=== PATIENT | female | born 1965 | race Caucasian/White ===

== ENCOUNTER 2021-03-15 17:21 | Emergency (ER) | payer OTHER ==
[2021-03-15] MEDS ORDERED: Ketorolac 30 MG/ML SDV IVPUSH ONE (17:28)
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
[2021-03-15] MEDS ORDERED: Diazepam 2 MG Tab PO ONE (17:29)
[2021-03-15 17:53] VITALS: BP 118/59; PULSE 64
== END 2021-03-15 17:53 | disposition home or self-care (01) ==
LOC: MW.ED 17:21
DX: M54.2 Cervicalgia (principal); M54.6 Pain in thoracic spine; M25.552 Pain in left hip; Z88.0 Allergy status to penicillin; Z88.6 Allergy status to analgesic agent; Z79.899 Other long term (current) drug therapy; V49.9XXA Car occupant (driver) (passenger) injured in unspecified traffic accident, initial encounter
CPT/HCPCS: 96374; 99284; A9270; J1885

== ENCOUNTER 2021-08-01 19:13 | Observation (INO) | payer OTHER ==
[2021-08-01] MEDS ORDERED: Sodium Chloride 0.9% 20 ML SDV IV PRN (19:23)
[2021-08-01] MEDS: Sodium Chloride 0.9% 2.5 ML Syringe FLUSH PRN ×2 (19:35→20:11)
[2021-08-01] MEDS: Sodium Chloride 0.9% 10 ML Syringe FLUSH PRN ×2 (19:35→20:11)
[2021-08-01] MEDS ORDERED: Iopamidol 755 MG/ML 500 ML Multipack Bottle IVPUSH ONE (19:36)
--- NOTE | 2021-08-01 19:40 | EDM.PDOC ---
ED HPI GENERAL MEDICAL PROBLEM - General Chief Complaint: Neuro Symptoms/Deficits Stated Complaint: SHORT OF BREATH, LT ARM WEAKNESS Time Seen by Provider: 08/01/21 19:23 - History of Present Illness INITIAL COMMENTS - FREE TEXT/NARRATIVE: CHIEF COMPLAINT(S): Left arm weakness HISTORY OF PRESENT ILLNESS: This is a 56-year-old woman with a past medical history of hypothyroidism, fibromyalgia and eosinophilic esophagitis who pr esents to the emergency department as a medical resuscitation via walk-in triage with a chief complaint of left arm weakness. The patient was triaged as a stroke code. Patient states that since 10 AM approximately 9 h ago she has been experiencing intermittent left arm weakness to where she is unable to use her arm as it normally works. 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 She denies any prior history of CVA or TIA. She denies any history of heart issues. She denies any diabetes or hypertension. She states that it resolves on its own and is currently not experiencing any weakness. She states that she did have Covid in June 2020 and her symptoms feel similar. In addition to the left arm weakness she is experiencing chest pressure/heaviness which is located in the center of her chest without any radiation. She denies any overt pain. She states that she does have associated shortness of breath but denies any lower extremity edema, recent travel, recent surgery or prior history of DVT or PE. She denies any family history of aortic aneurysm, connective tissue disorders. She denies any personal history of aortic aneurysm, hypertension or history of aortic dissection. She denies any tearing pain but states that the middle of her back does ache. She denies any cough, runny nose, tension, fever or chills. REVIEW OF SYSTEMS: Constitutional: Denies fever, chills. Eyes: Denies eye pain Ears, Nose, Mouth, & Throat: Denies earache Cardiovascular: Positive for chest pressure Respiratory: Denies shortness of breath Gastrointestinal: Denies Nausea, vomiting, diarrhea, hematochezia. Genitourinary: Denies hematuria Skin:Denies a rash MSK: Positive for middle back aching Neurological: Positive for left arm weakness. Denies blurred vision, numbness, tingling. She denies any trouble walking speaking or swallowing Psychiatric: Positive for fibromyalgia PAST MEDICAL HISTORY: As per history of present illness and as reviewed below otherwise noncontributory. SURGICAL HISTORY: As per history of present illness and as reviewed below otherwise noncontributory. SOCIAL HISTORY: As per history of present illness and as reviewed below otherwise noncontributory. FAMILY HISTORY: As per history of present illness and as reviewed below otherwise noncontributory. EXAMINATION OF ORGAN SYSTEMS/BODY AREAS: VITALS: Blood pressure is 146/88 in left arm, similar blood pressure in right arm. Heart rate 65, respiratory rate 17 with an oxygen saturation 99% on room air. Temperature 37.4. GENERAL: The patient is well-nourished, well-developed, in no acute distress. HEAD: Normocephalic, atraumatic. EYES: EOMs intact. PERRL. ENT. External ears WNL. Nares patent. Oropharynx is clear with no erythema or exudate. No uvular or tongue swelling. NECK: Supple, no masses. Trachea is midline. LUNGS: No tachypnea or intercostal retractions. Clear to auscultation bilaterally, no wheezing, no rales, no stridor, no rhonchi. CARDIOVASCULAR: Regular rate and rhythm with S1-S2. No murmur, rubs or gallops. No edema. No JVD. ABDOMEN: Soft, non-distended, non-tender. Bowel sounds present in all 4 quadrants. No rebound tenderness, guarding, or peritoneal signs. MUSCULOSKELETAL: No deformity. Patient is moving all 4 limbs spontaneously. NEUROLOGICAL: AOx4. CN grossly intact. Strength 5/5 in bilateral upper and lower extremity. Sensation is intact bilaterally in upper and lower extremity. Gait appears normal. Finger to nose, heel to mcginnis, rapid alternating movements intact. NIH stroke scale of zero SKIN: No rashes, or pallor. No signs of injury. MEDICAL DECISION MAKING AND COURSE IN THE ED WITH INTERPRETATION/REVIEW OF DIAGNOSTIC STUDIES: This is a 56-year-old woman with a past medical history of prior COVID-19 infection, hypothyroidism, fibromyalgia and eosinophilic esophagitis who presents to the emergency department as a medical resuscitation via walk-in triage for a chief complaint of left arm weakness and chest pressure. Immediately upon entering the resuscitation room the patient was disrobed, placed on continuous cardiac monitoring, and IV access was established by nursing. Patient is able to speak thus displaying a patent airway, breath sounds are equal bilaterally, and patient has palpable pulses in all 4 extremities. NIH stroke scale was completed and patient has an NIH stroke scale of zero. The patient is outside the TPA window. However given her history of COVID-19 the patient is at risk for clots therefore TIA is a consideration. Will obtain a CT head and CTA of the head and neck for further evaluation. Point-of- care glucose was found to be normal. Cardiac monitoring at this time did reveal sinus rhythm and pulse oximetry with good waveform was 99% on room air. In addition given the chest pain we will undergo an ACS work-up. Given that this is similar symptoms to her prior Covid we'll obtain a Covid swab. The patient was amenable to this plan DDx: ACS, TIA, CVA Laboratory: CBC is unremarkable. INR and PTT are normal. CMP is unremarkable. Troponin is negative. Covid and influenza are negative. The radiological images were viewed by myself along with reading the report from the radiologist. CT head without contrast does not reveal any acute intracranial abnormality. CTA of the head and neck did not reveal any large vessel occlusion, aneurysm or stenosis. After imaging I did contact [facility] and spoke with Dr. Perez regarding the patient's symptomatology and imaging. At this time the patient does not require transfer but he does recommend MRI for further work-up for other causes such as multiple sclerosis. I did place the MRI order. The patient will require observation admission for this imaging. I did discuss the results with the patient. At the time of my reevaluation patient continued to have normal vital signs and was amenable to observation admission at this time. I did provide the patient with aspirin by mouth. DISPOSITION: Admission CONDITION: Fair PROCEDURES: Cardiac monitoring interpretation, pulse oximetry interpretation FINAL IMPRESSION(S)/DIAGNOSES: 1. Acute left arm weakness possible TIA 2. Acute chest pressure Critical Care Procedure Note Authorized and performed by: Timmy Chiu M.D. Critical Care Time: 36 minutes Due to a high probability of clinically significant, life threatening deterioration, the patient required my highest level of preparedness to intervene emergently and I personally spent this critical care time directly and personally managing the patient. This critical care time included obtaining a history, examining the patient, pulse oximetry; ordering and review of studies; arranging urgent treatment with development of a management plan; evaluation of a patients reponse to treatment; frequent assessment; and discussions with other providers. This critical care time was performed to assess and manage the high probability of imminent, life threatening deterioration that could result in multiorgan failure. It was exclusive of separate billable procedures and treating other patients. Please see MDM section and rest of the note for further information on patient assessment and treatment. Please see MDM section and rest of the note for further information on patient assessment and treatment. - Related Data Allergies Allergy/AdvReac Type Severity Reaction Status Date / Time Penicillins Allergy Severe Other Verified 08/01/21 19:32 NSAIDS Allergy Rash Uncoded 08/01/21 19:32 Home Meds: Home Meds Linaclotide [Linzess] 290 mcg PO 10/17/14 [History] Liothyronine [Cytomel] 5 mcg PO BID 10/17/14 [History] Meclizine [Antivert] 1 tab PO Q4HR 10/17/14 [History] Pantoprazole [Protonix] PO BID 10/17/14 [History] Phentermine 37.5 mg PO DAILY 10/17/14 [History] Pregabalin [Lyrica] 100 mg PO TID 10/17/14 [History] SUMAtriptan succinate [Imitrex] 100 mg PO 10/17/14 [History] Sertraline [Zoloft] 1 tab PO DAILY 10/17/14 [History] traZODone HCl [Oleptro ER] 100 mg PO BEDTIME 10/17/14 [History] Ibuprofen 400 mg PO Q6H PRN #20 tablet 03/15/21 [Rx] diazePAM [Valium] 2 mg PO TID PRN #10 tab 03/15/21 [Rx] Past Medical History - Past Health History Medical/Surgical History: Denies Medical/Surgical History Endocrine/Metabolic History: Reports: Hyperthyroidism - Infectious Disease History Infectious Disease History: Reports: None Social & Family History - Family History Family Medical History: No Pertinent Family History - Tobacco Use Tobacco Use Status *Q: Never Tobacco User - Caffeine Use Caffeine Use: Reports: Coffee - Recreational Drug Use Recreational Drug Use: No ED ROS GENERAL - Review of Systems Review Of Systems: See Below ED EXAM, GENERAL - Physical Exam Exam: See Below Course - Vital Signs Last Recorded V/S: Last Vital Signs Temp 37.4 C 08/01/21 19:33 Pulse 55 L 08/01/21 20:51 Resp 16 08/01/21 20:51 BP 115/76 08/01/21 20:51 Pulse Ox 98 08/01/21 20:51 - Orders/Labs/Meds Orders: Active Orders 24 hr Category Date Time Status Admission Status [Patient Status] [ADT] Stat ADT 08/01/21 21:10 Active Assess Neurological Status [RC] CONTINUOUS Care 08/01/21 19:23 Active Blood Glucose Check, Bedside [RC] STAT Care 08/01/21 19:23 Active Cardiac Monitoring [RC] CONTINUOUS Care 08/01/21 19:23 Active Communication Order [RC] STAT Care 08/01/21 19:23 Active Height and Weight [RC] UPON Care 08/01/21 19:23 Active NIH Stroke Scale [RC] Q15M Care 08/01/21 19:23 Active NIH Stroke Scale [RC] STAT Care 08/01/21 19:23 Active Oxygen Therapy, ED [RC] ASDIRECTED Care 08/01/21 19:23 Active Vital Signs [RC] Q15M Care 08/01/21 19:23 Active Brain w wo Cont [MR] Stat Exams 08/01/21 20:23 Ordered Chest 1V Frontal [CR] Stat Exams 08/01/21 20:31 Taken Sodium Chloride 0.9% [Normal Saline] Med 08/01/21 19:23 Active 10 ml IV ASDIRECTED PRN Sodium Chloride 0.9% [Saline Flush] Med 08/01/21 19:23 Active 10 ml FLUSH ASDIRECTED PRN Sodium Chloride 0.9% [Saline Flush] Med 08/01/21 19:23 Active 2.5 ml FLUSH ASDIRECTED PRN Peripheral IV Insertion Adult [OM.PC] Stat Oth 08/01/21 19:23 Ordered Peripheral IV Insertion Adult [OM.PC] Stat Oth 08/01/21 19:23 Ordered Resuscitation Status Stat Resus Stat 08/01/21 19:23 Ordered Medication Orders Sodium Chloride (Sodium Chloride 0.9% 10 Ml Syringe) 10 ml FLUSH ASDIRECTED PRN PRN Reason: Keep Vein Open Last Admin: 08/01/21 20:11 Dose: 10 ml Documented by: Admin: 08/01/21 19:35 Dose: 10 ml Documented by: ANKITA Sodium Chloride (Sodium Chloride 0.9% 2.5 Ml Syringe) 2.5 ml FLUSH ASDIRECTED PRN PRN Reason: Keep Vein Open Last Admin: 08/01/21 20:11 Dose: 2.5 ml Documented by: Admin: 08/01/21 19:35 Dose: 2.5 ml Documented by: ANKITA Sodium Chloride (Sodium Chloride 0.9% 20 Ml Sdv) 10 ml IV ASDIRECTED PRN PRN Reason: IV Use Labs: Laboratory Tests 08/01/21 08/01/21 08/01/21 Range/Units 19:23 19:23 19:23 WBC 6.62 (4.0-11.0) K/uL RBC 4.10 L (4.30-5.90) M/uL Hgb 12.5 (12.0-16.0) g/dL Hct 37.5 (36.0-46.0) % MCV 91.5 (80.0-98.0) fL MCH 30.5 (27.0-32.0) pg MCHC 33.3 (31.0-37.0) g/dL RDW Std Deviation 45.8 (28.0-62.0) fl RDW Coeff of Renay 14 (11.0-15.0) % Plt Count 287 (150-400) K/uL MPV 10.10 (7.40-12.00) fL Neut % (Auto) 53.7 (48.0-80.0) % Lymph % (Auto) 37.8 (16.0-40.0) % [place] % (Auto) 5.0 (0.0-15.0) % Eos % (Auto) 3.0 (0.0-7.0) % Baso % (Auto) 0.5 (0.0-1.5) % Neut # (Auto) 3.6 (1.4-5.7) K/uL Lymph # (Auto) 2.5 H (0.6-2.4) K/uL [place] # (Auto) 0.3 (0.0-0.8) K/uL Eos # (Auto) 0.2 (0.0-0.7) K/uL Baso # (Auto) 0.0 (0.0-0.1) K/uL Nucleated RBC % 0.0 /100WBC Nucleated RBCs # 0 K/uL INR 1.00 APTT 23.9 (18.6-31.3) SEC Sodium 143 (136-145) mmol/L Potassium 3.6 (3.5-5.1) mmol/L Chloride 104 (98-107) mmol/L Carbon Dioxide 28.9 (21.0-32.0) mmol/L BUN 18 (7.0-18.0) mg/dL Creatinine 0.8 (0.6-1.0) mg/dL Est Cr Clr Drug Dosing 58.55 mL/min Estimated GFR (MDRD) > 60.0 ml/min Glucose 96 (74-106) mg/dL Calcium 8.8 (8.5-10.1) mg/dL Total Bilirubin 0.3 (0.2-1.0) mg/dL AST 18 (15-37) IU/L ALT 28 (14-63) IU/L Alkaline Phosphatase 93 (46-116) U/L Troponin I < 0.050 (0.000-0.056) ng/mL Total Protein 6.8 (6.4-8.2) g/dL Albumin 3.7 (3.4-5.0) g/dL Globulin 3.1 (2.6-4.0) g/dL Albumin/Globulin Ratio 1.2 (0.9-1.6) TSH, Ultra Sensitive (0.36-3.74) uIU/mL Influenza Type A RNA (NEGATIVE) Influenza Type B RNA (NEGATIVE) SARS-CoV-2 RNA (RIOS) (NEGATIVE) 08/01/21 08/01/21 Range/Units 19:23 19:24 WBC (4.0-11.0) K/uL RBC (4.30-5.90) M/uL Hgb (12.0-16.0) g/dL Hct (36.0-46.0) % MCV (80.0-98.0) fL MCH (27.0-32.0) pg MCHC (31.0-37.0) g/dL RDW Std Deviation (28.0-62.0) fl RDW Coeff of Renay (11.0-15.0) % Plt Count (150-400) K/uL MPV (7.40-12.00) fL Neut % (Auto) (48.0-80.0) % Lymph % (Auto) (16.0-40.0) % [place] % (Auto) (0.0-15.0) % Eos % (Auto) (0.0-7.0) % Baso % (Auto) (0.0-1.5) % Neut # (Auto) (1.4-5.7) K/uL Lymph # (Auto) (0.6-2.4) K/uL [place] # (Auto) (0.0-0.8) K/uL Eos # (Auto) (0.0-0.7) K/uL Baso # (Auto) (0.0-0.1) K/uL Nucleated RBC % /100WBC Nucleated RBCs # K/uL INR APTT (18.6-31.3) SEC Sodium (136-145) mmol/L Potassium (3.5-5.1) mmol/L Chloride (98-107) mmol/L Carbon Dioxide (21.0-32.0) mmol/L BUN (7.0-18.0) mg/dL Creatinine (0.6-1.0) mg/dL Est Cr Clr Drug Dosing mL/min Estimated GFR (MDRD) ml/min Glucose (74-106) mg/dL Calcium (8.5-10.1) mg/dL Total Bilirubin (0.2-1.0) mg/dL AST (15-37) IU/L ALT (14-63) IU/L Alkaline Phosphatase (46-116) U/L Troponin I (0.000-0.056) ng/mL Total Protein (6.4-8.2) g/dL Albumin (3.4-5.0) g/dL Globulin (2.6-4.0) g/dL Albumin/Globulin Ratio (0.9-1.6) TSH, Ultra Sensitive 1.57 (0.36-3.74) uIU/mL Influenza Type A RNA NEGATIVE (NEGATIVE) Influenza Type B RNA NEGATIVE (NEGATIVE) SARS-CoV-2 RNA (RIOS) NEGATIVE (NEGATIVE) Meds: Medications Generic Name Dose Route Start Last Admin Trade Name Freq PRN Reason Stop Dose Admin Sodium Chloride 10 ml 08/01/21 19:23 08/01/21 20:11 Sodium Chloride 0.9% 10 Ml Syringe FLUSH 10 ml ASDIRECTED PRN Administration Keep Vein Open Sodium Chloride 2.5 ml 08/01/21 19:23 08/01/21 20:11 Sodium Chloride 0.9% 2.5 Ml Syringe FLUSH 2.5 ml ASDIRECTED PRN Administration Keep Vein Open Sodium Chloride 10 ml 08/01/21 19:23 Sodium Chloride 0.9% 20 Ml Sdv IV ASDIRECTED PRN IV Use Discontinued Medications Generic Name Dose Route Start Last Admin Trade Name Freq PRN Reason Stop Dose Admin Aspirin 324 mg 08/01/21 20:20 08/01/21 20:40 Aspirin 81 Mg Tab.Chew PO 08/01/21 20:21 324 mg ONETIME ONE Administration Alum [place]/Mag [place]/Simeth XS 0 ml 08/01/21 20:04 08/01/21 20:11 15 ml/ Lidocaine HCl 5 ml PO 08/01/21 20:05 15 each ONETIME ONE Administration Diphenhydramine HCl 50 mg 08/01/21 20:00 08/01/21 20:10 Diphenhydramine 50 Mg/Ml Sdv IVPUSH 08/01/21 20:01 50 mg ONETIME ONE Administration Iopamidol 100 ml 08/01/21 19:36 08/01/21 19:49 Iopamidol 755 Mg/Ml 500 Ml Multipack Bottle IVPUSH 08/01/21 19:37 100 ml ONETIME ONE Administration Departure - Departure Time of Disposition: 20:35 Disposition: Refer to Observation Condition: Fair Clinical Impression: Arm weakness, Chest pressure - Discharge Information Forms: ED Department Discharge Sepsis Event Note (ED) - Evaluation Sepsis Screening Result: No Definite Risk - Focused Exam Vital Signs: Vital Signs Temp Pulse Resp BP Pulse Ox 08/01/21 20:51 55 L 16 115/76 98 08/01/21 20:15 69 18 146/85 H 100 08/01/21 20:08 68 16 130/75 99 08/01/21 19:53 62 16 145/78 H 100 08/01/21 19:38 59 L 18 141/89 H 99 08/01/21 19:33 37.4 C 65 17 146/88 H 99 08/01/21 19:23 56 L 18 141/93 H 100 - My Orders Last 24 Hours: My Active Orders 08/01/21 19:23 Assess Neurological Status [RC] CONTINUOUS Blood Glucose Check, Bedside [RC] STAT Cardiac Monitoring [RC] CONTINUOUS Communication Order [RC] STAT Height and Weight [RC] UPON NIH Stroke Scale [RC] Q15M NIH Stroke Scale [RC] STAT Oxygen Therapy, ED [RC] ASDIRECTED Vital Signs [RC] Q15M Sodium Chloride 0.9% [Normal Saline] 10 ml IV ASDIRECTED PRN Sodium Chloride 0.9% [Saline Flush] 10 ml FLUSH ASDIRECTED PRN Sodium Chloride 0.9% [Saline Flush] 2.5 ml FLUSH ASDIRECTED PRN Peripheral IV Insertion Adult [OM.PC] Stat Peripheral IV Insertion Adult [OM.PC] Stat Resuscitation Status Stat 08/01/21 20:23 Brain w wo Cont [MR] Stat 08/01/21 20:31 Chest 1V Frontal [CR] Stat 08/01/21 21:10 Admission Status [Patient Status] [ADT] Stat - Assessment/Plan Last 24 Hours: My Active Orders 08/01/21 19:23 Assess Neurological Status [RC] CONTINUOUS Blood Glucose Check, Bedside [RC] STAT Cardiac Monitoring [RC] CONTINUOUS Communication Order [RC] STAT Height and Weight [RC] UPON NIH Stroke Scale [RC] Q15M NIH Stroke Scale [RC] STAT Oxygen Therapy, ED [RC] ASDIRECTED Vital Signs [RC] Q15M Sodium Chloride 0.9% [Normal Saline] 10 ml IV ASDIRECTED PRN Sodium Chloride 0.9% [Saline Flush] 10 ml FLUSH ASDIRECTED PRN Sodium Chloride 0.9% [Saline Flush] 2.5 ml FLUSH ASDIRECTED PRN Peripheral IV Insertion Adult [OM.PC] Stat Peripheral IV Insertion Adult [OM.PC] Stat Resuscitation Status Stat 08/01/21 20:23 Brain w wo Cont [MR] Stat 08/01/21 20:31 Chest 1V Frontal [CR] Stat 08/01/21 21:10 Admission Status [Patient Status] [ADT] Stat
--- NOTE | 2021-08-01 19:43 | PCM.EKG ---
#1 Interpretation EKG Date: 08/01/21 Time: 19:24 Rhythm: NSR Rate (Beats/Min): 60 Walls: Normal P-Wave: Present QRS: Normal ST-T: Normal QT: Normal Comparison: NA - No Prior EKG EKG Interpretation Comments: Sinus Rhythm
[2021-08-01 19:55] LABS: BLOOD UREA NITROGEN,BUN 18 mg/dL (7.0-18.0); CARBON DIOXIDE,CO2 28.9 mmol/L (21.0-32.0); CHLORIDE,CL 104 mmol/L (98-107); GLUCOSE RANDOM 96 mg/dL (74-106); POTASSIUM,K 3.6 mmol/L (3.5-5.1); SODIUM,NA 143 mmol/L (136-145)
[2021-08-01] MEDS ORDERED: diphenhydrAMINE 50 MG/ML SDV IVPUSH ONE (20:00)
[2021-08-01] MEDS ORDERED: Alum Hydro/Mag Hydro/Simeth XS 15 ML, Lidocaine 2% 5 ML PO ONE ×2 (20:04)
[2021-08-01 20:10] LABS: CORONAVIRUS COVID-19 NAA NEGATIVE (NEGATIVE); INFLUENZA A NAA NEGATIVE (NEGATIVE); INFLUENZA B NAA NEGATIVE (NEGATIVE)
--- NOTE | 2021-08-01 20:11 | PCM.EKG ---
#2 Interpretation EKG Date: 08/01/21 Time: 19:53 Rhythm: NSR Rate (Beats/Min): 61 [place]: Normal P-Wave: Present QRS: Normal ST-T: Normal QT: Normal Comparison: No Change (Today) EKG Interpretation Comments: Sinus Rhythm
--- NOTE | 2021-08-01 20:13 | CT ---
Indication: Left-sided weakness Technique: Volumetric multidetector CT images of the head were obtained without the administration of low osmolar intravenous contrast. Comparison: None available Findings: There is no intra-axial or extra-axial fluid collection. There is no mass effect or midline shift. The ventricles and sulci are normal in size and position for age. There is mild chronic small vessel disease change within the subcortical and periventricular white matter. The brain parenchyma is grossly preserved in attenuation and walker-white differentiation. The orbits and their contents are grossly within normal limits. The bony calvarium is grossly intact. The paranasal sinuses are clear. The mastoid air cells are well aerated. Impression: No acute intracranial abnormality. Findings faxed to and confirmed received by Dr. Chiu at 8:08 p.m. August 01, [address] note that all CT scans at this facility use dose modulation, iterative reconstruction, and/or weight-based dosing when appropriate to reduce radiation dose to as low as reasonably achievable. Dictated by Lucien Card MD @ 08/01/2021 8:10:47 PM (Electronically Signed)
--- NOTE | 2021-08-01 20:17 | CT ---
INDICATION: Acute stroke, left-sided weakness. TECHNIQUE: CTA head with contrast bolus tracking and 3D MIP reconstruction. FINDINGS: There is normal filling of the intracranial vasculature. There is no large vessel occlusion. No aneurysm is identified. IMPRESSION: Unremarkable head CTA. Please note that all CT scans at this facility use dose modulation, iterative reconstruction, and/or weight-based dosing when appropriate to reduce radiation dose to as low as reasonably achievable. Dictated by Luiz Goss MD @ 08/01/2021 11:48:35 PM (Electronically Signed)
[2021-08-01] MEDS ORDERED: Aspirin 81 MG Tab.Chew PO ONE (20:20)
--- NOTE | 2021-08-01 20:44 | CT ---
INDICATION: Acute stroke, left-sided weakness. TECHNIQUE: CTA neck with contrast bolus tracking and 3D MIP reconstruction. FINDINGS: There is no carotid or vertebral artery stenosis or dissection. The soft tissues of the neck are within normal limits. Degenerative changes are incidentally noted in the cervical spine. IMPRESSION: No carotid or vertebral artery stenosis or dissection. Please note that all CT scans at this facility use dose modulation, iterative reconstruction, and/or weight-based dosing when appropriate to reduce radiation dose to as low as reasonably achievable. Dictated by Luiz Goss MD @ 08/01/2021 11:49:44 PM (Electronically Signed)
[2021-08-01] MEDS ORDERED: Enoxaparin 40 MG/0.4 ML Syringe SUBCUT SCH ×2 (21:00→23:30)
[2021-08-01] MEDS ORDERED: Acetaminophen 325 MG Tab PO PRN (21:19)
[2021-08-01] MEDS ORDERED: Ondansetron 4 MG Tab.DIS PO PRN (21:19)
--- NOTE | 2021-08-01 21:46 | PCM.HP.2 ---
<Benja Quintanilla - Last Filed: 08/02/21 11:07> H&P History of Present Illness - General Admit Problem/Dx: Admission Diagnosis/Problem Admission Diagnosis/Problem TIA, Transient ischemic attack Source of Information: Patient History Limitations: Reports: No Limitations - History of Present Illness Initial Comments - Free Text/Narative: Presented to the emergency room on 08/01/2021 was this 56-year-old woman with past medical history fibromyalgia, hypothyroidism, and egocentric esophagitis. She walked in with a complaint of left arm numbness. Noticed she felt a clumsiness or difference in the way that her left arm felt relative to the right. She has never had a history of trouble with the arm, prior history of CVA or TIA, cardiovascular disease, diabetes, hypertension. The symptoms started in the morning of admission and lasted about 9 hours, spontaneously going away. Patient does not have a history of lower extremity edema, deep venous thrombosis, coagulation disorder. Patient has no history of cardiovascular disease or arrhythmia. Patient was admitted for observation and completion of work-up to look for possibility of a CVA. Onset of Symptoms: Reports: Sudden Duration of Symptoms: Reports: Hour(s): Location: Reports: Upper Extremity, Left Quality: Reports: Other Severity: Moderate (See dictated text above.) Improves with: Reports: None Worsens with: Reports: None Context: Reports: Activity/Exercise Associated Symptoms: Reports: No Other Symptoms - Related Data Allergies/Adverse Reactions: Allergies Allergy/AdvReac Type Severity Reaction Status Date / Time Penicillins Allergy Severe Other Verified 08/02/21 02:24 NSAIDS AdvReac Mild Other Uncoded 08/02/21 02:24 Home Medications: Home Meds Liothyronine [Cytomel] 5 mcg PO DAILY 10/17/14 [History] Pantoprazole [ProTONIX Granules] 40 mg PO DAILY 10/17/14 [History] SUMAtriptan succinate [Imitrex] 100 mg PO DAILY 10/17/14 [History] Sertraline [Zoloft] 50 mg PO DAILY 10/17/14 [History] traZODone HCl [Oleptro ER] 100 mg PO BEDTIME 10/17/14 [History] Ibuprofen 400 mg PO Q6H PRN #20 tablet 03/15/21 [Rx] Aspirin 81 mg PO DAILY #30 tab.chew 08/02/21 [Rx] Furosemide [Lasix] 40 mg PO DAILY 08/02/21 [History] Levothyroxine [Synthroid] 100 mcg PO DAILY 08/02/21 [History] Metoclopramide [Reglan] 10 mg PO DAILY PRN 08/02/21 [History] methocarbamoL [Methocarbamol] 750 mg PO DAILY PRN 08/02/21 [History] H&P Review of Systems - Review of Systems: General: Reports: No Symptoms HEENT: Reports: No Symptoms Pulmonary: Reports: Shortness of Breath Cardiovascular: Reports: No Symptoms Gastrointestinal: Reports: No Symptoms Genitourinary: Reports: No Symptoms Musculoskeletal: Reports: No Symptoms Skin: Reports: No Symptoms Psychiatric: Reports: No Symptoms Neurological: Reports: Paresthesia, Weakness Hematologic/Lymphatic: Reports: No Symptoms Immunologic: Reports: Grass Allergy, Other (History of eosinophilic esophagitis without known etiology.) Exam - Vital Signs Vital Signs: Last Vital Signs Temp 97.5 F 08/02/21 08:00 Pulse 57 L 08/02/21 08:00 Resp 18 08/02/21 08:00 BP 104/71 08/02/21 08:00 Pulse Ox 100 08/02/21 08:00 - Patient Data Lab Results Last 24 hrs: Laboratory Results - last 24 hr 08/01/21 08/01/21 08/01/21 Range/Units 19:23 19:23 19:23 WBC 6.62 (4.0-11.0) K/uL RBC 4.10 L (4.30-5.90) M/uL Hgb 12.5 (12.0-16.0) g/dL Hct 37.5 (36.0-46.0) % MCV 91.5 (80.0-98.0) fL MCH 30.5 (27.0-32.0) pg MCHC 33.3 (31.0-37.0) g/dL RDW Std Deviation 45.8 (28.0-62.0) fl RDW Coeff of Renay 14 (11.0-15.0) % Plt Count 287 (150-400) K/uL MPV 10.10 (7.40-12.00) fL Neut % (Auto) 53.7 (48.0-80.0) % Lymph % (Auto) 37.8 (16.0-40.0) % [place] % (Auto) 5.0 (0.0-15.0) % Eos % (Auto) 3.0 (0.0-7.0) % Baso % (Auto) 0.5 (0.0-1.5) % Neut # (Auto) 3.6 (1.4-5.7) K/uL Lymph # (Auto) 2.5 H (0.6-2.4) K/uL [place] # (Auto) 0.3 (0.0-0.8) K/uL Eos # (Auto) 0.2 (0.0-0.7) K/uL Baso # (Auto) 0.0 (0.0-0.1) K/uL Nucleated RBC % 0.0 /100WBC Nucleated RBCs # 0 K/uL INR 1.00 APTT 23.9 (18.6-31.3) SEC Sodium 143 (136-145) mmol/L Potassium 3.6 (3.5-5.1) mmol/L Chloride 104 (98-107) mmol/L Carbon Dioxide 28.9 (21.0-32.0) mmol/L BUN 18 (7.0-18.0) mg/dL Creatinine 0.8 (0.6-1.0) mg/dL Est Cr Clr Drug Dosing 58.55 mL/min Estimated GFR (MDRD) > 60.0 ml/min Glucose 96 (74-106) mg/dL Calcium 8.8 (8.5-10.1) mg/dL Total Bilirubin 0.3 (0.2-1.0) mg/dL AST 18 (15-37) IU/L ALT 28 (14-63) IU/L Alkaline Phosphatase 93 (46-116) U/L Troponin I < 0.050 (0.000-0.056) ng/mL Total Protein 6.8 (6.4-8.2) g/dL Albumin 3.7 (3.4-5.0) g/dL Globulin 3.1 (2.6-4.0) g/dL Albumin/Globulin Ratio 1.2 (0.9-1.6) Triglycerides (0-200) mg/dL Cholesterol (50-200) mg/dL LDL Cholesterol, Calc (60-180) mg/dL VLDL Cholesterol (5-55) mg/dL HDL Cholesterol (40-60) mg/dL Cholesterol/HDL Ratio (3.3-6.0) TSH, Ultra Sensitive (0.36-3.74) uIU/mL Influenza Type A RNA (NEGATIVE) Influenza Type B RNA (NEGATIVE) SARS-CoV-2 RNA (RIOS) (NEGATIVE) 08/01/21 08/01/21 08/02/21 Range/Units 19:23 19:24 10:06 WBC (4.0-11.0) K/uL RBC (4.30-5.90) M/uL Hgb (12.0-16.0) g/dL Hct (36.0-46.0) % MCV (80.0-98.0) fL MCH (27.0-32.0) pg MCHC (31.0-37.0) g/dL RDW Std Deviation (28.0-62.0) fl RDW Coeff of Renay (11.0-15.0) % Plt Count (150-400) K/uL MPV (7.40-12.00) fL Neut % (Auto) (48.0-80.0) % Lymph % (Auto) (16.0-40.0) % [place] % (Auto) (0.0-15.0) % Eos % (Auto) (0.0-7.0) % Baso % (Auto) (0.0-1.5) % Neut # (Auto) (1.4-5.7) K/uL Lymph # (Auto) (0.6-2.4) K/uL [place] # (Auto) (0.0-0.8) K/uL Eos # (Auto) (0.0-0.7) K/uL Baso # (Auto) (0.0-0.1) K/uL Nucleated RBC % /100WBC Nucleated RBCs # K/uL INR APTT (18.6-31.3) SEC Sodium (136-145) mmol/L Potassium (3.5-5.1) mmol/L Chloride (98-107) mmol/L Carbon Dioxide (21.0-32.0) mmol/L BUN (7.0-18.0) mg/dL Creatinine (0.6-1.0) mg/dL Est Cr Clr Drug Dosing mL/min Estimated GFR (MDRD) ml/min Glucose (74-106) mg/dL Calcium (8.5-10.1) mg/dL Total Bilirubin (0.2-1.0) mg/dL AST (15-37) IU/L ALT (14-63) IU/L Alkaline Phosphatase (46-116) U/L Troponin I (0.000-0.056) ng/mL Total Protein (6.4-8.2) g/dL Albumin (3.4-5.0) g/dL Globulin (2.6-4.0) g/dL Albumin/Globulin Ratio (0.9-1.6) Triglycerides 128 (0-200) mg/dL Cholesterol 185 (50-200) mg/dL LDL Cholesterol, Calc 70 (60-180) mg/dL VLDL Cholesterol 25 (5-55) mg/dL HDL Cholesterol 89 H (40-60) mg/dL Cholesterol/HDL Ratio 2.1 L (3.3-6.0) TSH, Ultra Sensitive 1.57 (0.36-3.74) uIU/mL Influenza Type A RNA NEGATIVE (NEGATIVE) Influenza Type B RNA NEGATIVE (NEGATIVE) SARS-CoV-2 RNA (RIOS) NEGATIVE (NEGATIVE) Result Diagrams: 08/01/21 19:23 08/01/21 19:23 Sepsis Event Note - Focused Exam Vital Signs: Vital Signs Temp Pulse Resp BP Pulse Ox 08/02/21 08:00 97.5 F 57 L 18 104/71 100 08/02/21 04:00 96.7 F L 56 L 14 100/61 97 08/01/21 23:40 97.7 F 58 L 14 128/76 100 Orders Last 24hrs: Active Orders 24 hr Category Date Time Status Patient Status [ADT] Stat ADT 08/01/21 21:10 Active Assess Neurological Status [RC] CONTINUOUS Care 08/01/21 19:23 Active Blood Glucose Check, Bedside [RC] STAT Care 08/01/21 19:23 Active Cardiac Monitoring [RC] CONTINUOUS Care 08/01/21 19:23 Active Cardiac Monitoring [RC] Q8H Care 08/01/21 21:33 Active Communication Order [RC] STAT Care 08/01/21 19:23 Active Height and Weight [RC] UPON Care 08/01/21 19:23 Active NIH Stroke Scale [RC] ASDIRECTED Care 08/01/21 21:23 Active NIH Stroke Scale [RC] Q15M Care 08/01/21 19:23 Active NIH Stroke Scale [RC] STAT Care 08/01/21 19:23 Active Neuro Check [RC] Q4HR Care 08/01/21 21:24 Active Oxygen Therapy [RC] PRN Care 08/01/21 21:20 Active Oxygen Therapy, ED [RC] ASDIRECTED Care 08/01/21 19:23 Active Up ad Anna [RC] ASDIRECTED Care 08/01/21 21:19 Active VTE/DVT Education [RC] PER UNIT ROUTINE Care 08/01/21 21:20 Active Vital Signs [RC] Q15M Care 08/01/21 19:23 Active Vital Signs [RC] Q4H Care 08/01/21 21:20 Active OT Evaluation and Treatment [CONS] Routine Cons 08/01/21 21:19 Active PT Evaluation and Treatment [CONS] Routine Cons 08/01/21 21:19 Active PARTNERSHIP DEVELOPMENT MANAGER Evaluation and Treatment [CONS] Routine Cons 08/01/21 21:19 Active Regular Diet [DIET] Diet 08/02/21 Breakfast Active Echo Comp wo Cont [US] Stat Exams 08/02/21 21:23 Taken Acetaminophen [TylenoL] Med 08/01/21 21:19 Active 650 mg PO Q4H PRN Enoxaparin [Lovenox] Med 08/01/21 23:30 Active 40 mg SUBCUT BEDTIME Ondansetron [Zofran ODT] Med 08/01/21 21:19 Active 4 mg PO Q6H PRN Pantoprazole [ProTONIX] Med 08/01/21 23:30 Active 40 mg PO BID Patient's Own Medication [Ptom] Med 08/02/21 09:00 Active 1 each PO BID SUMAtriptan [Imitrex] Med 08/02/21 07:01 Active 100 mg PO ONETIME PRN Sertraline [Zoloft] Med 08/01/21 23:30 Active 50 mg PO BEDTIME Sodium Chloride 0.9% [Normal Saline] Med 08/01/21 19:23 Active 10 ml IV ASDIRECTED PRN Sodium Chloride 0.9% [Saline Flush] Med 08/01/21 19:23 Active 10 ml FLUSH ASDIRECTED PRN Sodium Chloride 0.9% [Saline Flush] Med 08/01/21 19:23 Active 2.5 ml FLUSH ASDIRECTED PRN traZODone Med 08/02/21 00:15 Active 100 mg PO BEDTIME Peripheral IV Insertion Adult [OM.PC] Stat Oth 08/01/21 19:23 Ordered Peripheral IV Insertion Adult [OM.PC] Stat Oth 08/01/21 19:23 Ordered Resuscitation Status Stat Resus Stat 08/01/21 19:23 Ordered Medication Orders Acetaminophen (Acetaminophen 325 Mg Tab) 650 mg PO Q4H PRN PRN Reason: Pain (Mild 1-3)/fever Enoxaparin Sodium (Enoxaparin 40 Mg/0.4 Ml Syringe) 40 mg SUBCUT BEDTIME [facility] Last Admin: 08/02/21 00:24 Dose: 40 mg Documented by: ANURAG Ondansetron HCl (Ondansetron 4 Mg Tab.Dis) 4 mg PO Q6H PRN PRN Reason: nausea, able to take PO Pantoprazole Sodium (Pantoprazole 40 Mg Tab.Cr) 40 mg PO BID [facility] Last Admin: 08/02/21 08:56 Dose: 40 mg Documented by: Admin: 08/02/21 00:25 Dose: 40 mg Documented by: ANURAG Liothyronine 5 Mcg (Tablet) 1 each PO BID [facility] Last Admin: 08/02/21 08:57 Dose: Not Given Documented by: EM Sertraline HCl (Sertraline 50 Mg Tab) 50 mg PO BEDTIME [facility] Last Admin: 08/02/21 00:25 Dose: 50 mg Documented by: ANURAG Sodium Chloride (Sodium Chloride 0.9% 10 Ml Syringe) 10 ml FLUSH ASDIRECTED PRN PRN Reason: Keep Vein Open Last Admin: 08/01/21 20:11 Dose: 10 ml Documented by: Admin: 08/01/21 19:35 Dose: 10 ml Documented by: ANKITA Sodium Chloride (Sodium Chloride 0.9% 2.5 Ml Syringe) 2.5 ml FLUSH ASDIRECTED PRN PRN Reason: Keep Vein Open Last Admin: 08/01/21 20:11 Dose: 2.5 ml Documented by: Admin: 08/01/21 19:35 Dose: 2.5 ml Documented by: CUYOCHR Sodium Chloride (Sodium Chloride 0.9% 20 Ml Sdv) 10 ml IV ASDIRECTED PRN PRN Reason: IV Use Sumatriptan Succinate (Sumatriptan 50 Mg Tab) 100 mg PO ONETIME PRN PRN Reason: MIGRAINE HEADACHE Trazodone HCl (Trazodone 50 Mg Tab) 100 mg PO BEDTIME [facility] Last Admin: 08/02/21 00:25 Dose: 100 mg Documented by: ANURAG <Tamra Kirk - Last Filed: 08/02/21 12:19> H&P History of Present Illness - General Date of Service: 08/02/21 Admit Problem/Dx: Admission Diagnosis/Problem Admission Diagnosis/Problem TIA, Transient ischemic attack H&P Review of Systems - Review of Systems: Review Of Systems: See Below Exam - Exam Exam: See Below - Vital Signs Vital Signs: Last Vital Signs Temp 96.4 F L 08/02/21 11:38 Pulse 59 L 08/02/21 11:38 Resp 22 H 08/02/21 11:38 BP 105/54 L 08/02/21 11:38 Pulse Ox 98 08/02/21 11:38 - Exam General: Alert, Oriented, 4 HEENT: Conjunctiva Clear, EACs Clear, EOMI, Hearing Intact, Mucosa Moist & [place], Nares Patent, Normal Nasal Septum, Posterior Pharynx Clear, PERRLA Neck: Supple, Trachea Midline, 2 Lungs: Clear to Auscultation, Normal Respiratory Effort Cardiovascular: Regular Rate, Regular Rhythm GI/Abdominal Exam: Soft, Non-Tender, No Distention (Female) Exam: Deferred Rectal (Female) Exam: Deferred Back Exam: Normal Inspection Extremities: Normal Inspection Peripheral Pulses: 2+: Carotid (L) (No bruit), Carotid (R) (No bruit), Radial (L), Radial (R) Skin: Warm, Dry, Intact Neurological: Cranial Nerves Intact, Strength Equal Bilateral, Normal Speech, Other (Romberg negative) - Patient Data Lab Results Last 24 hrs: Laboratory Results - last 24 hr 08/01/21 08/01/21 08/01/21 Range/Units 19:23 19:23 19:23 WBC 6.62 (4.0-11.0) K/uL RBC 4.10 L (4.30-5.90) M/uL Hgb 12.5 (12.0-16.0) g/dL Hct 37.5 (36.0-46.0) % MCV 91.5 (80.0-98.0) fL MCH 30.5 (27.0-32.0) pg MCHC 33.3 (31.0-37.0) g/dL RDW Std Deviation 45.8 (28.0-62.0) fl RDW Coeff of Renay 14 (11.0-15.0) % Plt Count 287 (150-400) K/uL MPV 10.10 (7.40-12.00) fL Neut % (Auto) 53.7 (48.0-80.0) % Lymph % (Auto) 37.8 (16.0-40.0) % [place] % (Auto) 5.0 (0.0-15.0) % Eos % (Auto) 3.0 (0.0-7.0) % Baso % (Auto) 0.5 (0.0-1.5) % Neut # (Auto) 3.6 (1.4-5.7) K/uL Lymph # (Auto) 2.5 H (0.6-2.4) K/uL [place] # (Auto) 0.3 (0.0-0.8) K/uL Eos # (Auto) 0.2 (0.0-0.7) K/uL Baso # (Auto) 0.0 (0.0-0.1) K/uL Nucleated RBC % 0.0 /100WBC Nucleated RBCs # 0 K/uL INR 1.00 APTT 23.9 (18.6-31.3) SEC Sodium 143 (136-145) mmol/L Potassium 3.6 (3.5-5.1) mmol/L Chloride 104 (98-107) mmol/L Carbon Dioxide 28.9 (21.0-32.0) mmol/L BUN 18 (7.0-18.0) mg/dL Creatinine 0.8 (0.6-1.0) mg/dL Est Cr Clr Drug Dosing 58.55 mL/min Estimated GFR (MDRD) > 60.0 ml/min Glucose 96 (74-106) mg/dL Calcium 8.8 (8.5-10.1) mg/dL Total Bilirubin 0.3 (0.2-1.0) mg/dL AST 18 (15-37) IU/L ALT 28 (14-63) IU/L Alkaline Phosphatase 93 (46-116) U/L Troponin I < 0.050 (0.000-0.056) ng/mL Total Protein 6.8 (6.4-8.2) g/dL Albumin 3.7 (3.4-5.0) g/dL Globulin 3.1 (2.6-4.0) g/dL Albumin/Globulin Ratio 1.2 (0.9-1.6) Triglycerides (0-200) mg/dL Cholesterol (50-200) mg/dL LDL Cholesterol, Calc (60-180) mg/dL VLDL Cholesterol (5-55) mg/dL HDL Cholesterol (40-60) mg/dL Cholesterol/HDL Ratio (3.3-6.0) TSH, Ultra Sensitive (0.36-3.74) uIU/mL Influenza Type A RNA (NEGATIVE) Influenza Type B RNA (NEGATIVE) SARS-CoV-2 RNA (RIOS) (NEGATIVE) 08/01/21 08/01/21 08/02/21 Range/Units 19:23 19:24 10:06 WBC (4.0-11.0) K/uL RBC (4.30-5.90) M/uL Hgb (12.0-16.0) g/dL Hct (36.0-46.0) % MCV (80.0-98.0) fL MCH (27.0-32.0) pg MCHC (31.0-37.0) g/dL RDW Std Deviation (28.0-62.0) fl RDW Coeff of Renay (11.0-15.0) % Plt Count (150-400) K/uL MPV (7.40-12.00) fL Neut % (Auto) (48.0-80.0) % Lymph % (Auto) (16.0-40.0) % [place] % (Auto) (0.0-15.0) % Eos % (Auto) (0.0-7.0) % Baso % (Auto) (0.0-1.5) % Neut # (Auto) (1.4-5.7) K/uL Lymph # (Auto) (0.6-2.4) K/uL [place] # (Auto) (0.0-0.8) K/uL Eos # (Auto) (0.0-0.7) K/uL Baso # (Auto) (0.0-0.1) K/uL Nucleated RBC % /100WBC Nucleated RBCs # K/uL INR APTT (18.6-31.3) SEC Sodium (136-145) mmol/L Potassium (3.5-5.1) mmol/L Chloride (98-107) mmol/L Carbon Dioxide (21.0-32.0) mmol/L BUN (7.0-18.0) mg/dL Creatinine (0.6-1.0) mg/dL Est Cr Clr Drug Dosing mL/min Estimated GFR (MDRD) ml/min Glucose (74-106) mg/dL Calcium (8.5-10.1) mg/dL Total Bilirubin (0.2-1.0) mg/dL AST (15-37) IU/L ALT (14-63) IU/L Alkaline Phosphatase (46-116) U/L Troponin I (0.000-0.056) ng/mL Total Protein (6.4-8.2) g/dL Albumin (3.4-5.0) g/dL Globulin (2.6-4.0) g/dL Albumin/Globulin Ratio (0.9-1.6) Triglycerides 128 (0-200) mg/dL Cholesterol 185 (50-200) mg/dL LDL Cholesterol, Calc 70 (60-180) mg/dL VLDL Cholesterol 25 (5-55) mg/dL HDL Cholesterol 89 H (40-60) mg/dL Cholesterol/HDL Ratio 2.1 L (3.3-6.0) TSH, Ultra Sensitive 1.57 (0.36-3.74) uIU/mL Influenza Type A RNA NEGATIVE (NEGATIVE) Influenza Type B RNA NEGATIVE (NEGATIVE) SARS-CoV-2 RNA (RIOS) NEGATIVE (NEGATIVE) Result Diagrams: 08/01/21 19:23 08/01/21 19:23 Sepsis Event Note - Focused Exam Vital Signs: Vital Signs Temp Pulse Resp BP Pulse Ox 08/02/21 11:38 96.4 F L 59 L 22 H 105/54 L 98 08/02/21 08:00 97.5 F 57 L 18 104/71 100 08/02/21 04:00 96.7 F L 56 L 14 100/61 97 - Problem List (1) LUE weakness SNOMED Code(s): 847087651 ICD Code: R29.898 - OTH SYMPTOMS AND SIGNS INVOLVING THE MUSCULOSKELETAL SYSTEM Status: Resolved Problem List Initiated/Reviewed/Updated: Yes Orders Last 24hrs: Active Orders 24 hr Category Date Time Status Admission Status [Patient Status] [ADT] Stat ADT 08/01/21 21:10 Active Assess Neurological Status [RC] CONTINUOUS Care 08/01/21 19:23 Active Blood Glucose Check, Bedside [RC] STAT Care 08/01/21 19:23 Active Cardiac Monitoring [RC] CONTINUOUS Care 08/01/21 19:23 Active Communication Order [RC] STAT Care 08/01/21 19:23 Active Height and Weight [RC] UPON Care 08/01/21 19:23 Active NIH Stroke Scale [RC] ASDIRECTED Care 08/01/21 21:23 Active NIH Stroke Scale [RC] Q15M Care 08/01/21 19:23 Active NIH Stroke Scale [RC] STAT Care 08/01/21 19:23 Active Neuro Check [RC] Q4HR Care 08/01/21 21:24 Active Oxygen Therapy [RC] PRN Care 08/01/21 21:20 Active Oxygen Therapy, ED [RC] ASDIRECTED Care 08/01/21 19:23 Active Ready for Discharge [RC] PER UNIT ROUTINE Care 08/02/21 12:01 Active Telemetry Monitoring [Cardiac Monitoring] [RC] Q8H Care 08/01/21 21:33 Active Up ad Anna [RC] ASDIRECTED Care 08/01/21 21:19 Active VTE/DVT Education [RC] PER UNIT ROUTINE Care 08/01/21 21:20 Active Vital Signs [RC] Q15M Care 08/01/21 19:23 Active Vital Signs [RC] Q4H Care 08/01/21 21:20 Active OT Evaluation and Treatment [CONS] Routine Cons 08/01/21 21:19 Active PT Evaluation and Treatment [CONS] Routine Cons 08/01/21 21:19 Active PARTNERSHIP DEVELOPMENT MANAGER Evaluation and Treatment [CONS] Routine Cons 08/01/21 21:19 Active Regular Diet [DIET] Diet 08/02/21 Breakfast Active Echo Comp wo Cont [US] Stat Exams 08/02/21 21:23 Taken Acetaminophen [TylenoL] Med 08/01/21 21:19 Active 650 mg PO Q4H PRN Enoxaparin [Lovenox] Med 08/01/21 23:30 Active 40 mg SUBCUT BEDTIME Ondansetron [Zofran ODT] Med 08/01/21 21:19 Active 4 mg PO Q6H PRN Pantoprazole [ProTONIX] Med 08/01/21 23:30 Active 40 mg PO BID Patient's Own Medication [Ptom] Med 08/02/21 09:00 Active 1 each PO BID SUMAtriptan [Imitrex] Med 08/02/21 07:01 Active 100 mg PO ONETIME PRN Sertraline [Zoloft] Med 08/01/21 23:30 Active 50 mg PO BEDTIME Sodium Chloride 0.9% [Normal Saline] Med 08/01/21 19:23 Active 10 ml IV ASDIRECTED PRN Sodium Chloride 0.9% [Saline Flush] Med 08/01/21 19:23 Active 10 ml FLUSH ASDIRECTED PRN Sodium Chloride 0.9% [Saline Flush] Med 08/01/21 19:23 Active 2.5 ml FLUSH ASDIRECTED PRN traZODone Med 08/02/21 00:15 Active 100 mg PO BEDTIME Peripheral IV Insertion Adult [OM.PC] Stat Oth 08/01/21 19:23 Ordered Peripheral IV Insertion Adult [OM.PC] Stat Oth 08/01/21 19:23 Ordered Resuscitation Status Stat Resus Stat 08/01/21 19:23 Ordered Medication Orders Acetaminophen (Acetaminophen 325 Mg Tab) 650 mg PO Q4H PRN PRN Reason: Pain (Mild 1-3)/fever Enoxaparin Sodium (Enoxaparin 40 Mg/0.4 Ml Syringe) 40 mg SUBCUT BEDTIME [facility] Last Admin: 08/02/21 00:24 Dose: 40 mg Documented by: ANURAG Ondansetron HCl (Ondansetron 4 Mg Tab.Dis) 4 mg PO Q6H PRN PRN Reason: nausea, able to take PO Pantoprazole Sodium (Pantoprazole 40 Mg Tab.Cr) 40 mg PO BID [facility] Last Admin: 08/02/21 08:56 Dose: 40 mg Documented by: Admin: 08/02/21 00:25 Dose: 40 mg Documented by: ANURAG Liothyronine 5 Mcg (Tablet) 1 each PO BID [facility] Last Admin: 08/02/21 08:57 Dose: Not Given Documented by: EM Sertraline HCl (Sertraline 50 Mg Tab) 50 mg PO BEDTIME [facility] Last Admin: 08/02/21 00:25 Dose: 50 mg Documented by: ANURAG Sodium Chloride (Sodium Chloride 0.9% 10 Ml Syringe) 10 ml FLUSH ASDIRECTED PRN PRN Reason: Keep Vein Open Last Admin: 08/01/21 20:11 Dose: 10 ml Documented by: Admin: 08/01/21 19:35 Dose: 10 ml Documented by: ANKITA Sodium Chloride (Sodium Chloride 0.9% 2.5 Ml Syringe) 2.5 ml FLUSH ASDIRECTED PRN PRN Reason: Keep Vein Open Last Admin: 08/01/21 20:11 Dose: 2.5 ml Documented by: Admin: 08/01/21 19:35 Dose: 2.5 ml Documented by: ANKITA Sodium Chloride (Sodium Chloride 0.9% 20 Ml Sdv) 10 ml IV ASDIRECTED PRN PRN Reason: IV Use Sumatriptan Succinate (Sumatriptan 50 Mg Tab) 100 mg PO ONETIME PRN PRN Reason: MIGRAINE HEADACHE Trazodone HCl (Trazodone 50 Mg Tab) 100 mg PO BEDTIME [facility] Last Admin: 08/02/21 00:25 Dose: 100 mg Documented by: ANURAG Assessment/Plan Comment:: Work-up thus far has included CTA of head and neck which were negative for evidence of CVA, vascular abnormality, mass-effect, abnormal ventricles. MRI of brain is pending. What echocardiogram results are pending and will be sent to PCP. Encourage ambulation with assistance. If work-up is negative for evidence of neurovascular abnormality, will discharge on aspirin to follow-up with PCP to arrange specialty consultation. <Sushil Chester - Last Filed: 08/02/21 14:41> H&P History of Present Illness - General Date of Service: 08/01/21 Admit Problem/Dx: Admission Diagnosis/Problem Admission Diagnosis/Problem TIA, Transient ischemic attack - History of Present Illness Initial Comments - Free Text/Narative: 56-year-old woman with a past medical history of hypothyroidism, fibromyalgia and eosinophilic esophagitis who presents to the emergency department as a medical resuscitation via walk-in triage with a chief complaint of left arm weakness. The patient was triaged as a stroke code. Patient states that since 10 AM approximately 9 h ago she has been experiencing intermittent left arm weakne ss to where she is unable to use her arm as it normally works. 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 She denies any prior history of CVA or TIA. She denies any history of heart issues. She denies any diabetes or hypertension. She states that it resolves on its own and is currently not experiencing any weakness. She states that she did have Covid in June 2020 and her symptoms feel similar. In addition to the left arm weakness she is experiencing chest pressure/heaviness which is located in the center of her chest without any radiation. She denies any overt pain. She states that she does have associated shortness of breath but denies any lower extremity edema, recent travel, recent surgery or prior history of DVT or PE. She denies any family history of aortic aneurysm, connective tissue disorders. She denies any personal history of aortic aneurysm, hypertension or history of aortic dissection. She denies any tearing pain but states that the middle of her back does ache. She denies any cough, runny nose, tension, fever or chills. Past Medical History - Past Health History Medical/Surgical History: Denies Medical/Surgical History Endocrine/Metabolic History: Reports: Hyperthyroidism - Infectious Disease History Infectious Disease History: Reports: None Social & Family History - Family History Family Medical History: No Pertinent Family History - Tobacco Use Tobacco Use Status *Q: Never Tobacco User - Caffeine Use Caffeine Use: Reports: Coffee - Recreational Drug Use Recreational Drug Use: No Exam - Vital Signs Vital Signs: Last Vital Signs Temp 99.4 F 08/01/21 19:33 Pulse 61 08/01/21 21:18 Resp 16 08/01/21 21:18 BP 109/71 08/01/21 21:18 Pulse Ox 100 08/01/21 21:18 Weight: 159 lb 2.78 oz - Exam Physical Exam Comments:: General: well developed female. In no distress CVS: s1s2 appreciated. RRR lungs: clear bilaterally pa: soft,non tender. bowel sounds present ext: no clubbing, cyanosis or edema neuro: strength 5/5 bilaterally, sensation is intact. - Patient Data Lab Results Last 24 hrs: Laboratory Results - last 24 hr 08/01/21 08/01/21 08/01/21 Range/Units 19:23 19:23 19:23 WBC 6.62 (4.0-11.0) K/uL RBC 4.10 L (4.30-5.90) M/uL Hgb 12.5 (12.0-16.0) g/dL Hct 37.5 (36.0-46.0) % MCV 91.5 (80.0-98.0) fL MCH 30.5 (27.0-32.0) pg MCHC 33.3 (31.0-37.0) g/dL RDW Std Deviation 45.8 (28.0-62.0) fl RDW Coeff of Renay 14 (11.0-15.0) % Plt Count 287 (150-400) K/uL MPV 10.10 (7.40-12.00) fL Neut % (Auto) 53.7 (48.0-80.0) % Lymph % (Auto) 37.8 (16.0-40.0) % [place] % (Auto) 5.0 (0.0-15.0) % Eos % (Auto) 3.0 (0.0-7.0) % Baso % (Auto) 0.5 (0.0-1.5) % Neut # (Auto) 3.6 (1.4-5.7) K/uL Lymph # (Auto) 2.5 H (0.6-2.4) K/uL [place] # (Auto) 0.3 (0.0-0.8) K/uL Eos # (Auto) 0.2 (0.0-0.7) K/uL Baso # (Auto) 0.0 (0.0-0.1) K/uL Nucleated RBC % 0.0 /100WBC Nucleated RBCs # 0 K/uL INR 1.00 APTT 23.9 (18.6-31.3) SEC Sodium 143 (136-145) mmol/L Potassium 3.6 (3.5-5.1) mmol/L Chloride 104 (98-107) mmol/L Carbon Dioxide 28.9 (21.0-32.0) mmol/L BUN 18 (7.0-18.0) mg/dL Creatinine 0.8 (0.6-1.0) mg/dL Est Cr Clr Drug Dosing 58.55 mL/min Estimated GFR (MDRD) > 60.0 ml/min Glucose 96 (74-106) mg/dL Calcium 8.8 (8.5-10.1) mg/dL Total Bilirubin 0.3 (0.2-1.0) mg/dL AST 18 (15-37) IU/L ALT 28 (14-63) IU/L Alkaline Phosphatase 93 (46-116) U/L Troponin I < 0.050 (0.000-0.056) ng/mL Total Protein 6.8 (6.4-8.2) g/dL Albumin 3.7 (3.4-5.0) g/dL Globulin 3.1 (2.6-4.0) g/dL Albumin/Globulin Ratio 1.2 (0.9-1.6) TSH, Ultra Sensitive (0.36-3.74) uIU/mL Influenza Type A RNA (NEGATIVE) Influenza Type B RNA (NEGATIVE) SARS-CoV-2 RNA (RIOS) (NEGATIVE) 08/01/21 08/01/21 Range/Units 19:23 19:24 WBC (4.0-11.0) K/uL RBC (4.30-5.90) M/uL Hgb (12.0-16.0) g/dL Hct (36.0-46.0) % MCV (80.0-98.0) fL MCH (27.0-32.0) pg MCHC (31.0-37.0) g/dL RDW Std Deviation (28.0-62.0) fl RDW Coeff of Renay (11.0-15.0) % Plt Count (150-400) K/uL MPV (7.40-12.00) fL Neut % (Auto) (48.0-80.0) % Lymph % (Auto) (16.0-40.0) % [place] % (Auto) (0.0-15.0) % Eos % (Auto) (0.0-7.0) % Baso % (Auto) (0.0-1.5) % Neut # (Auto) (1.4-5.7) K/uL Lymph # (Auto) (0.6-2.4) K/uL [place] # (Auto) (0.0-0.8) K/uL Eos # (Auto) (0.0-0.7) K/uL Baso # (Auto) (0.0-0.1) K/uL Nucleated RBC % /100WBC Nucleated RBCs # K/uL INR APTT (18.6-31.3) SEC Sodium (136-145) mmol/L Potassium (3.5-5.1) mmol/L Chloride (98-107) mmol/L Carbon Dioxide (21.0-32.0) mmol/L BUN (7.0-18.0) mg/dL Creatinine (0.6-1.0) mg/dL Est Cr Clr Drug Dosing mL/min Estimated GFR (MDRD) ml/min Glucose (74-106) mg/dL Calcium (8.5-10.1) mg/dL Total Bilirubin (0.2-1.0) mg/dL AST (15-37) IU/L ALT (14-63) IU/L Alkaline Phosphatase (46-116) U/L Troponin I (0.000-0.056) ng/mL Total Protein (6.4-8.2) g/dL Albumin (3.4-5.0) g/dL Globulin (2.6-4.0) g/dL Albumin/Globulin Ratio (0.9-1.6) TSH, Ultra Sensitive 1.57 (0.36-3.74) uIU/mL Influenza Type A RNA NEGATIVE (NEGATIVE) Influenza Type B RNA NEGATIVE (NEGATIVE) SARS-CoV-2 RNA (RIOS) NEGATIVE (NEGATIVE) Result Diagrams: 08/01/21 19:23 08/01/21 19:23 Sepsis Event Note - Evaluation Sepsis Screening Result: No Definite Risk - Focused Exam Vital Signs: Vital Signs Temp Pulse Resp BP Pulse Ox 08/01/21 21:18 61 16 109/71 100 08/01/21 20:51 55 L 16 115/76 98 08/01/21 20:15 69 18 146/85 H 100 08/01/21 20:08 68 16 130/75 99 08/01/21 19:53 62 16 145/78 H 100 08/01/21 19:38 59 L 18 141/89 H 99 08/01/21 19:33 99.4 F 65 17 146/88 H 99 08/01/21 19:23 56 L 18 141/93 H 100 - Problem List (1) LUE weakness SNOMED Code(s): 982794125 ICD Code: R29.898 - OTH SYMPTOMS AND SIGNS INVOLVING THE MUSCULOSKELETAL SYSTEM Status: Resolved (2) LUE weakness SNOMED Code(s): 126578230 ICD Code: R29.898 - OTH SYMPTOMS AND SIGNS INVOLVING THE MUSCULOSKELETAL SYSTEM Status: Acute (3) Hypothyroidism SNOMED Code(s): 92776600 ICD Code: E03.9 - HYPOTHYROIDISM, UNSPECIFIED Status: Acute (4) Migraines SNOMED Code(s): 92757515 ICD Code: G43.909 - MIGRAINE, UNSP, NOT INTRACTABLE, WITHOUT STATUS MIGRAINOSUS Status: Acute Problem List Initiated/Reviewed/Updated: Yes Orders Last 24hrs: Active Orders 24 hr Category Date Time Status Admission Status [Patient Status] [ADT] Stat ADT 08/01/21 21:10 Active Assess Neurological Status [RC] CONTINUOUS Care 08/01/21 19:23 Active Blood Glucose Check, Bedside [RC] STAT Care 08/01/21 19:23 Active Cardiac Monitoring [RC] CONTINUOUS Care 08/01/21 19:23 Active Communication Order [RC] STAT Care 08/01/21 19:23 Active Height and Weight [RC] UPON Care 08/01/21 19:23 Active NIH Stroke Scale [RC] ASDIRECTED Care 08/01/21 21:23 Ordered NIH Stroke Scale [RC] Q15M Care 08/01/21 19:23 Active NIH Stroke Scale [RC] STAT Care 08/01/21 19:23 Active Neuro Check [RC] Q4HR Care 08/01/21 21:24 Ordered Oxygen Therapy [RC] PRN Care 08/01/21 21:20 Ordered Oxygen Therapy, ED [RC] ASDIRECTED Care 08/01/21 19:23 Active Up ad Anna [RC] ASDIRECTED Care 08/01/21 21:19 Ordered VTE/DVT Education [RC] PER UNIT ROUTINE Care 08/01/21 21:20 Ordered Vital Signs [RC] Q15M Care 08/01/21 19:23 Active Vital Signs [RC] Q4H Care 08/01/21 21:20 Ordered OT Evaluation and Treatment [CONS] Routine Cons 08/01/21 21:19 Ordered PT Evaluation and Treatment [CONS] Routine Cons 08/01/21 21:19 Ordered [employer]NER[employer]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[employer] MANAGER Evaluation and Treatment [CONS] Routine Cons 08/01/21 21:19 Ordered Brain w wo Cont [MR] Stat Exams 08/01/21 20:23 Ordered Chest 1V Frontal [CR] Stat Exams 08/01/21 20:31 Taken Echo 2D wo Cont [US] Stat Exams 08/01/21 21:23 Ordered Acetaminophen [TylenoL] Med 08/01/21 21:19 Ordered 650 mg PO Q4H PRN Enoxaparin [Lovenox] Med 08/01/21 21:30 Ordered 40 mg SUBCUT Q24H Ondansetron [Zofran ODT] Med 08/01/21 21:19 Ordered 4 mg PO Q6H PRN Sodium Chloride 0.9% [Normal Saline] Med 08/01/21 19:23 Active 10 ml IV ASDIRECTED PRN Sodium Chloride 0.9% [Saline Flush] Med 08/01/21 19:23 Active 10 ml FLUSH ASDIRECTED PRN Sodium Chloride 0.9% [Saline Flush] Med 08/01/21 19:23 Active 2.5 ml FLUSH ASDIRECTED PRN Peripheral IV Insertion Adult [OM.PC] Stat Oth 08/01/21 19:23 Ordered Peripheral IV Insertion Adult [OM.PC] Stat Oth 08/01/21 19:23 Ordered Resuscitation Status Stat Resus Stat 08/01/21 19:23 Ordered Medication Orders Acetaminophen (Acetaminophen 325 Mg Tab) 650 mg PO Q4H PRN PRN Reason: Pain (Mild 1-3)/fever Enoxaparin Sodium (Enoxaparin 40 Mg/0.4 Ml Syringe) 40 mg SUBCUT Q24H PHILLIP Ondansetron HCl (Ondansetron 4 Mg Tab.Dis) 4 mg PO Q6H PRN PRN Reason: nausea, able to take PO Sodium Chloride (Sodium Chloride 0.9% 10 Ml Syringe) 10 ml FLUSH ASDIRECTED PRN PRN Reason: Keep Vein Open Last Admin: 08/01/21 20:11 Dose: 10 ml Documented by: Admin: 08/01/21 19:35 Dose: 10 ml Documented by: ANKITA Sodium Chloride (Sodium Chloride 0.9% 2.5 Ml Syringe) 2.5 ml FLUSH ASDIRECTED PRN PRN Reason: Keep Vein Open Last Admin: 08/01/21 20:11 Dose: 2.5 ml Documented by: Admin: 08/01/21 19:35 Dose: 2.5 ml Documented by: ANKITA Sodium Chloride (Sodium Chloride 0.9% 20 Ml Sdv) 10 ml IV ASDIRECTED PRN PRN Reason: IV Use Assessment/Plan Comment:: LUE weakness Etiology is unclear. This could be due to a TIA/CVA , complex migraine or a demyelination neurologic condition such as MS Migraines Pt is on imitrex prn Hypothyroidism. Full code. Plan Admit to the medical floor, neurochecks 2 DECHO MRI brain r/o CVA ASA - Mortality Measure Prognosis:: Good
--- NOTE | 2021-08-01 21:47 | CR ---
INDICATION: Chest pressure. TECHNIQUE: Chest 1 view. COMPARISON: 06/26/2010. FINDINGS: Cardiovascular and mediastinum: Heart size and vasculature are normal in caliber and appearance. Mediastinum is within normal limits. Lungs and pleural space: Lungs are clear. No sign of infiltrate or mass. No sign of pleural effusion. No pneumothorax. Bones and soft tissues: No significant findings. IMPRESSION: Lungs are clear. Dictated by Jayant Cali MD @ 08/01/2021 9:45:52 PM (Electronically Signed)
[2021-08-01] MEDS ORDERED: Pantoprazole 40 MG Tab.CR PO SCH (22:00)
[2021-08-01] MEDS ORDERED: Sertraline 50 MG Tab PO SCH (23:30)
[2021-08-02] MEDS ORDERED: traZODone 50 MG Tab PO SCH (00:15)
[2021-08-02] MEDS: Pantoprazole 40 MG Tab.CR PO SCH ×2 (00:25→08:56)
[2021-08-02] MEDS ORDERED: SUMAtriptan 50 MG Tab PO PRN (07:01)
[2021-08-02] MEDS ORDERED: Gadobenate Dimeglumine 529 MG/ML 20 ML SDV IVPUSH STA (07:41)
--- NOTE | 2021-08-02 08:22 | MR ---
Indication: Left arm weakness. Evaluate for multiple sclerosis. Technique: Noncontrast sagittal T1, axial and sagittal FLAIR, T2 turbo spine echo, and diffusion weighted images. Supplemental post contrast T1 weighted axial and coronal sequences are provided after administration of 14 mL MultiHance gadolinium-based IV contrast. Comparison: CT 08/01/2021 Findings: The ventricles, sulci and gyri are normal size, shape and contour for age. The midline structures are centrally located with no evidence of shift. There are no suspicious intra or extra-axial fluid collections. No evidence of restricted diffusion to suggest acute ischemia. Expected flow voids in the cavernous carotids and basilar artery. No abnormal contrast enhancement involving the brain parenchyma, meninges, calvarium or skull base. Minimal mucosal thickening in the left maxillary sinus. Impression: Unremarkable MRI of the head. Dictated by David Cerda MD @ 08/02/2021 8:20:39 AM (Electronically Signed)
[2021-08-02] MEDS ORDERED: Liothyronine 5 MCG Tablet PO SCH (09:00)
[2021-08-02 11:39] VITALS: BP 105/54; PULSE 59
--- NOTE | 2021-08-02 12:27 | PCM.DCSUM1 ---
<Tamra Kirk - Last Filed: 08/02/21 12:24> Discharge Summary - Hospital Course Free Text/Narrative:: Patient symptoms had originally lasted 9 hours and were actually resolved about the time she got to emergency room. Work-up to date has not revealed evidence of a hemorrhage, mass-effect, thrombosis. There is no evidence of CVA. Plan is to put patient on prophylactic aspirin 81 mg daily and follow-up with PCP will arrange specialty consultation with neurology. Patient will be advised with precautions until that time. Diagnosis: Stroke: No - Discharge Data Discharge Date: 08/02/21 Discharge Disposition: Home, Self-Care 01 Condition: Stable - Referral to Home Health Primary Care Physician: Aric Guillermo MD - Discharge Diagnosis/Problem(s) (1) LUE weakness SNOMED Code(s): 731298025 ICD Code: R29.898 - OT SYMPTOMS AND SIGNS INVOLVING THE MUSCULOSKELETAL SYSTEM Status: Resolved - Patient Summary/Data Consults: Consultations 08/01/21 21:19 OT Evaluation and Treatment [CONS] Routine PT Evaluation and Treatment [CONS] Routine LEASE ADMINISTRATOR Evaluation and Treatment [CONS] Routine - Patient Instructions Diet: Heart Healthy Diet Activity: As Tolerated Other/Special Instructions: If you experience chest pain, palpitations, headaches, dizziness, lightheadedness, loss of consciousness, weakness, numbness, tingling, please seek medical attention immediately. You will start taking a baby aspirin daily. You have been given a prescription for aspirin or you may purchase it [id number]. Please follow-up with your PCP regarding lipid-lowering therapy. Please follow-up with your PCP regarding echocardiogram results. - Discharge Plan *PRESCRIPTION DRUG MONITORING PROGRAM REVIEWED*: Not Applicable *COPY OF PRESCRIPTION DRUG MONITORING REPORT IN PATIENT NAHOMI: Not Applicable Prescriptions/Med Rec: Aspirin 81 mg PO DAILY #30 tab.chew Home Medications: Home Meds Liothyronine [Cytomel] 5 mcg PO DAILY 10/17/14 [History] Pantoprazole [ProTONIX Granules] 40 mg PO DAILY 10/17/14 [History] SUMAtriptan succinate [Imitrex] 100 mg PO DAILY 10/17/14 [History] Sertraline [Zoloft] 50 mg PO DAILY 10/17/14 [History] traZODone HCl [Oleptro ER] 100 mg PO BEDTIME 10/17/14 [History] Ibuprofen 400 mg PO Q6H PRN #20 tablet 03/15/21 [Rx] Aspirin 81 mg PO DAILY #30 tab.chew 08/02/21 [Rx] Furosemide [Lasix] 40 mg PO DAILY 08/02/21 [History] Levothyroxine [Synthroid] 100 mcg PO DAILY 08/02/21 [History] Metoclopramide [Reglan] 10 mg PO DAILY PRN 08/02/21 [History] methocarbamoL [Methocarbamol] 750 mg PO DAILY PRN 08/02/21 [History] Oxygen Therapy Mode: Room Air Patient Handouts: Weakness, [id number], Aspirin, ASA oral tablets Referrals: Aric Guillermo MD [Primary Care Provider] - 08/14/21 3:15 pm - Discharge Summary/Plan Comment DC Time >30 min.: Yes Total # of Minutes for Discharge Time: 45 - General Info Date of Service: 08/02/21 Admission Dx/Problem (Free Text: Admission Diagnosis/Problem Admission Diagnosis/Problem TIA, Transient ischemic attack - Review of Systems General: Reports: No Symptoms HEENT: Reports: No Symptoms Pulmonary: Reports: No Symptoms Cardiovascular: Reports: No Symptoms Gastrointestinal: Reports: No Symptoms Genitourinary: Reports: No Symptoms Musculoskeletal: Reports: No Symptoms Skin: Reports: No Symptoms Neurological: Reports: No Symptoms Psychiatric: Reports: No Symptoms - Patient Data Vitals - Most Recent: Last Vital Signs Temp 96.4 F L 08/02/21 11:38 Pulse 59 L 08/02/21 11:38 Resp 22 H 08/02/21 11:38 BP 105/54 L 08/02/21 11:38 Pulse Ox 98 08/02/21 11:38 Weight - Most Recent: 154 lb 1.6 oz I&O - Last 24 hours: Intake & Output 08/01/21 08/02/21 08/02/21 22:59 06:59 14:59 Intake Total 450 Output Total 0 Balance 450 Lab Results - Last 24 hrs: Laboratory Results - last 24 hr 08/01/21 08/01/21 08/01/21 Range/Units 19:23 19:23 19:23 WBC 6.62 (4.0-11.0) K/uL RBC 4.10 L (4.30-5.90) M/uL Hgb 12.5 (12.0-16.0) g/dL Hct 37.5 (36.0-46.0) % MCV 91.5 (80.0-98.0) fL MCH 30.5 (27.0-32.0) pg MCHC 33.3 (31.0-37.0) g/dL RDW Std Deviation 45.8 (28.0-62.0) fl RDW Coeff of Renay 14 (11.0-15.0) % Plt Count 287 (150-400) K/uL MPV 10.10 (7.40-12.00) fL Neut % (Auto) 53.7 (48.0-80.0) % Lymph % (Auto) 37.8 (16.0-40.0) % [place] % (Auto) 5.0 (0.0-15.0) % Eos % (Auto) 3.0 (0.0-7.0) % Baso % (Auto) 0.5 (0.0-1.5) % Neut # (Auto) 3.6 (1.4-5.7) K/uL Lymph # (Auto) 2.5 H (0.6-2.4) K/uL [place] # (Auto) 0.3 (0.0-0.8) K/uL Eos # (Auto) 0.2 (0.0-0.7) K/uL Baso # (Auto) 0.0 (0.0-0.1) K/uL Nucleated RBC % 0.0 /100WBC Nucleated RBCs # 0 K/uL INR 1.00 APTT 23.9 (18.6-31.3) SEC Sodium 143 (136-145) mmol/L Potassium 3.6 (3.5-5.1) mmol/L Chloride 104 (98-107) mmol/L Carbon Dioxide 28.9 (21.0-32.0) mmol/L BUN 18 (7.0-18.0) mg/dL Creatinine 0.8 (0.6-1.0) mg/dL Est Cr Clr Drug Dosing 58.55 mL/min Estimated GFR (MDRD) > 60.0 ml/min Glucose 96 (74-106) mg/dL Calcium 8.8 (8.5-10.1) mg/dL Total Bilirubin 0.3 (0.2-1.0) mg/dL AST 18 (15-37) IU/L ALT 28 (14-63) IU/L Alkaline Phosphatase 93 (46-116) U/L Troponin I < 0.050 (0.000-0.056) ng/mL Total Protein 6.8 (6.4-8.2) g/dL Albumin 3.7 (3.4-5.0) g/dL Globulin 3.1 (2.6-4.0) g/dL Albumin/Globulin Ratio 1.2 (0.9-1.6) Triglycerides (0-200) mg/dL Cholesterol (50-200) mg/dL LDL Cholesterol, Calc (60-180) mg/dL VLDL Cholesterol (5-55) mg/dL HDL Cholesterol (40-60) mg/dL Cholesterol/HDL Ratio (3.3-6.0) TSH, Ultra Sensitive (0.36-3.74) uIU/mL Influenza Type A RNA (NEGATIVE) Influenza Type B RNA (NEGATIVE) SARS-CoV-2 RNA (RIOS) (NEGATIVE) 08/01/21 08/01/21 08/02/21 Range/Units 19:23 19:24 10:06 WBC (4.0-11.0) K/uL RBC (4.30-5.90) M/uL Hgb (12.0-16.0) g/dL Hct (36.0-46.0) % MCV (80.0-98.0) fL MCH (27.0-32.0) pg MCHC (31.0-37.0) g/dL RDW Std Deviation (28.0-62.0) fl RDW Coeff of Renay (11.0-15.0) % Plt Count (150-400) K/uL MPV (7.40-12.00) fL Neut % (Auto) (48.0-80.0) % Lymph % (Auto) (16.0-40.0) % [place] % (Auto) (0.0-15.0) % Eos % (Auto) (0.0-7.0) % Baso % (Auto) (0.0-1.5) % Neut # (Auto) (1.4-5.7) K/uL Lymph # (Auto) (0.6-2.4) K/uL [place] # (Auto) (0.0-0.8) K/uL Eos # (Auto) (0.0-0.7) K/uL Baso # (Auto) (0.0-0.1) K/uL Nucleated RBC % /100WBC Nucleated RBCs # K/uL INR APTT (18.6-31.3) SEC Sodium (136-145) mmol/L Potassium (3.5-5.1) mmol/L Chloride (98-107) mmol/L Carbon Dioxide (21.0-32.0) mmol/L BUN (7.0-18.0) mg/dL Creatinine (0.6-1.0) mg/dL Est Cr Clr Drug Dosing mL/min Estimated GFR (MDRD) ml/min Glucose (74-106) mg/dL Calcium (8.5-10.1) mg/dL Total Bilirubin (0.2-1.0) mg/dL AST (15-37) IU/L ALT (14-63) IU/L Alkaline Phosphatase (46-116) U/L Troponin I (0.000-0.056) ng/mL Total Protein (6.4-8.2) g/dL Albumin (3.4-5.0) g/dL Globulin (2.6-4.0) g/dL Albumin/Globulin Ratio (0.9-1.6) Triglycerides 128 (0-200) mg/dL Cholesterol 185 (50-200) mg/dL LDL Cholesterol, Calc 70 (60-180) mg/dL VLDL Cholesterol 25 (5-55) mg/dL HDL Cholesterol 89 H (40-60) mg/dL Cholesterol/HDL Ratio 2.1 L (3.3-6.0) TSH, Ultra Sensitive 1.57 (0.36-3.74) uIU/mL Influenza Type A RNA NEGATIVE (NEGATIVE) Influenza Type B RNA NEGATIVE (NEGATIVE) SARS-CoV-2 RNA (RIOS) NEGATIVE (NEGATIVE) Med Orders - Current: Current Medications Acetaminophen (Acetaminophen 325 Mg Tab) 650 mg PO Q4H PRN PRN Reason: Pain (Mild 1-3)/fever Enoxaparin Sodium (Enoxaparin 40 Mg/0.4 Ml Syringe) 40 mg SUBCUT BEDTIME PHILLIP Last Admin: 08/02/ 00:24 Dose: 40 mg Documented by: Ondansetron HCl (Ondansetron 4 Mg Tab.Dis) 4 mg PO Q6H PRN PRN Reason: nausea, able to take PO Pantoprazole Sodium (Pantoprazole 40 Mg Tab.Cr) 40 mg PO BID [facility] Last Admin: 08/02/21 08:56 Dose: 40 mg Documented by: Liothyronine 5 Mcg (Tablet) 1 each PO BID [facility] Last Admin: 08/02/21 08:57 Dose: Not Given Documented by: Sertraline HCl (Sertraline 50 Mg Tab) 50 mg PO BEDTIME [facility] Last Admin: 08/02/21 00:25 Dose: 50 mg Documented by: Sodium Chloride (Sodium Chloride 0.9% 10 Ml Syringe) 10 ml FLUSH ASDIRECTED PRN PRN Reason: Keep Vein Open Last Admin: 08/01/21 20:11 Dose: 10 ml Documented by: Sodium Chloride (Sodium Chloride 0.9% 2.5 Ml Syringe) 2.5 ml FLUSH ASDIRECTED PRN PRN Reason: Keep Vein Open Last Admin: 08/01/21 20:11 Dose: 2.5 ml Documented by: Sodium Chloride (Sodium Chloride 0.9% 20 Ml Sdv) 10 ml IV ASDIRECTED PRN PRN Reason: IV Use Sumatriptan Succinate (Sumatriptan 50 Mg Tab) 100 mg PO ONETIME PRN PRN Reason: MIGRAINE HEADACHE Trazodone HCl (Trazodone 50 Mg Tab) 100 mg PO BEDTIME [facility] Last Admin: 08/02/21 00:25 Dose: 100 mg Documented by: Discontinued Medications Aspirin (Aspirin 81 Mg Tab.Chew) 324 mg PO ONETIME ONE Stop: 08/01/21 20:21 Last Admin: 08/01/21 20:40 Dose: 324 mg Documented by: Alum Buskirk/Mag Buskirk/Simeth XS (15 ml/ Lidocaine HCl 5 ml) 0 ml PO ONETIME ONE Stop: 08/01/21 20:05 Last Admin: 08/01/21 20:11 Dose: 15 each Documented by: Diphenhydramine HCl (Diphenhydramine 50 Mg/Ml Sdv) 50 mg IVPUSH ONETIME ONE Stop: 08/01/21 20:01 Last Admin: 08/01/21 20:10 Dose: 50 mg Documented by: Enoxaparin Sodium (Enoxaparin 40 Mg/0.4 Ml Syringe) 40 mg SUBCUT Q24H [facility] Last Admin: 08/02/21 01:06 Dose: Not Given Documented by: Gadobenate Dimeglumine (Gadobenate Dimeglumine 529 Mg/Ml 20 Ml Sdv) 20 ml IVPUSH ONETIME STA Stop: 08/02/21 07:42 Last Admin: 08/02/21 07:49 Dose: 14 ml Documented by: Iopamidol (Iopamidol 755 Mg/Ml 500 Ml Multipack Bottle) 100 ml IVPUSH ONETIME ONE Stop: 08/01/21 19:37 Last Admin: 08/01/21 19:49 Dose: 100 ml Documented by: Pantoprazole Sodium (Pantoprazole 40 Mg Tab.Cr) 40 mg PO BID [facility] Last Admin: 08/02/21 01:06 Dose: Not Given Documented by: Trazodone HCl (Trazodone Hcl 100 Mg Tab) 100 mg PO BEDTIME [facility] Last Admin: 08/02/21 01:06 Dose: Not Given Documented by: - Exam General: Reports: Alert, Oriented HEENT: Reports: Pupils Equal, Pupils Reactive, EOMI, Mucous Membr. Moist/[place] Neck: Reports: Supple Lungs: Reports: Clear to Auscultation, Normal Respiratory Effort Cardiovascular: Reports: Regular Rate, Regular Rhythm GI/Abdominal Exam: Normal Bowel Sounds, Soft, Non-Tender, No Organomegaly, No Distention (Female) Exam: Deferred Rectal (Female) Exam: Deferred Back Exam: Reports: Normal Inspection Extremities: Normal Inspection, Non-Tender, No Pedal Edema Skin: Reports: Warm, Dry, Intact Neurological: Reports: No New Focal Deficit Psy/Mental Status: Reports: Alert, Normal Affect, Normal Mood <Sushil Chester - Last Filed: 08/02/21 14:41> Discharge Summary - Hospital Course Free Text/Narrative:: I agree with the above assessments and plan Condition on discharge: stable Activity: as tolerated Diet: regular Follow up with PCP in the next 1-2 wks. Physical exam. CVS: S1S2 appreciated RRR lungs: clear bilaterally pa: soft, non tender. bowel sounds present ext: no clubbing, cyanosis or edema neuro: gait is normal. Strength is equal and symmetrical. no sensory deficits noted. - Referral to Home Health Primary Care Physician: Aric Guillermo MD - Discharge Diagnosis/Problem(s) (1) LUE weakness SNOMED Code(s): 334104012 ICD Code: R29.898 - OTH SYMPTOMS AND SIGNS INVOLVING THE MUSCULOSKELETAL SYSTEM Status: Resolved (2) LUE weakness SNOMED Code(s): 485436966 ICD Code: R29.898 - OTH SYMPTOMS AND SIGNS INVOLVING THE MUSCULOSKELETAL SYSTEM Status: Acute (3) Hypothyroidism SNOMED Code(s): 47285328 ICD Code: E03.9 - HYPOTHYROIDISM, UNSPECIFIED Status: Acute (4) Migraines SNOMED Code(s): 85199334 ICD Code: G43.909 - MIGRAINE, UNSP, NOT INTRACTABLE, WITHOUT STATUS MIGRAINOSUS Status: Acute - Patient Summary/Data Consults: Consultations 08/01/21 21:19 OT Evaluation and Treatment [CONS] Routine PT Evaluation and Treatment [CONS] Routine LEASE ADMINISTRATOR Evaluation and Treatment [CONS] Routine - Patient Data Vitals - Most Recent: Last Vital Signs Temp 96.4 F L 08/02/21 11:38 Pulse 59 L 08/02/21 11:38 Resp 22 H 08/02/21 11:38 BP 105/54 L 08/02/21 11:38 Pulse Ox 98 08/02/21 11:38 I&O - Last 24 hours: Intake & Output 08/01/21 08/02/21 08/02/21 22:59 06:59 14:59 Intake Total 450 Output Total 0 Balance 450 Lab Results - Last 24 hrs: Laboratory Results - last 24 hr 08/01/21 08/01/21 08/01/21 Range/Units 19:23 19:23 19:23 WBC 6.62 (4.0-11.0) K/uL RBC 4.10 L (4.30-5.90) M/uL Hgb 12.5 (12.0-16.0) g/dL Hct 37.5 (36.0-46.0) % MCV 91.5 (80.0-98.0) fL MCH 30.5 (27.0-32.0) pg MCHC 33.3 (31.0-37.0) g/dL RDW Std Deviation 45.8 (28.0-62.0) fl RDW Coeff of Renay 14 (11.0-15.0) % Plt Count 287 (150-400) K/uL MPV 10.10 (7.40-12.00) fL Neut % (Auto) 53.7 (48.0-80.0) % Lymph % (Auto) 37.8 (16.0-40.0) % [place] % (Auto) 5.0 (0.0-15.0) % Eos % (Auto) 3.0 (0.0-7.0) % Baso % (Auto) 0.5 (0.0-1.5) % Neut # (Auto) 3.6 (1.4-5.7) K/uL Lymph # (Auto) 2.5 H (0.6-2.4) K/uL [place] # (Auto) 0.3 (0.0-0.8) K/uL Eos # (Auto) 0.2 (0.0-0.7) K/uL Baso # (Auto) 0.0 (0.0-0.1) K/uL Nucleated RBC % 0.0 /100WBC Nucleated RBCs # 0 K/uL INR 1.00 APTT 23.9 (18.6-31.3) SEC Sodium 143 (136-145) mmol/L Potassium 3.6 (3.5-5.1) mmol/L Chloride 104 (98-107) mmol/L Carbon Dioxide 28.9 (21.0-32.0) mmol/L BUN 18 (7.0-18.0) mg/dL Creatinine 0.8 (0.6-1.0) mg/dL Est Cr Clr Drug Dosing 58.55 mL/min Estimated GFR (MDRD) > 60.0 ml/min Glucose 96 (74-106) mg/dL Calcium 8.8 (8.5-10.1) mg/dL Total Bilirubin 0.3 (0.2-1.0) mg/dL AST 18 (15-37) IU/L ALT 28 (14-63) IU/L Alkaline Phosphatase 93 (46-116) U/L Troponin I < 0.050 (0.000-0.056) ng/mL Total Protein 6.8 (6.4-8.2) g/dL Albumin 3.7 (3.4-5.0) g/dL Globulin 3.1 (2.6-4.0) g/dL Albumin/Globulin Ratio 1.2 (0.9-1.6) Triglycerides (0-200) mg/dL Cholesterol (50-200) mg/dL LDL Cholesterol, Calc (60-180) mg/dL VLDL Cholesterol (5-55) mg/dL HDL Cholesterol (40-60) mg/dL Cholesterol/HDL Ratio (3.3-6.0) TSH, Ultra Sensitive (0.36-3.74) uIU/mL Influenza Type A RNA (NEGATIVE) Influenza Type B RNA (NEGATIVE) SARS-CoV-2 RNA (RIOS) (NEGATIVE) 08/01/21 08/01/21 08/02/21 Range/Units 19:23 19:24 10:06 WBC (4.0-11.0) K/uL RBC (4.30-5.90) M/uL Hgb (12.0-16.0) g/dL Hct (36.0-46.0) % MCV (80.0-98.0) fL MCH (27.0-32.0) pg MCHC (31.0-37.0) g/dL RDW Std Deviation (28.0-62.0) fl RDW Coeff of Renay (11.0-15.0) % Plt Count (150-400) K/uL MPV (7.40-12.00) fL Neut % (Auto) (48.0-80.0) % Lymph % (Auto) (16.0-40.0) % [place] % (Auto) (0.0-15.0) % Eos % (Auto) (0.0-7.0) % Baso % (Auto) (0.0-1.5) % Neut # (Auto) (1.4-5.7) K/uL Lymph # (Auto) (0.6-2.4) K/uL [place] # (Auto) (0.0-0.8) K/uL Eos # (Auto) (0.0-0.7) K/uL Baso # (Auto) (0.0-0.1) K/uL Nucleated RBC % /100WBC Nucleated RBCs # K/uL INR APTT (18.6-31.3) SEC Sodium (136-145) mmol/L Potassium (3.5-5.1) mmol/L Chloride (98-107) mmol/L Carbon Dioxide (21.0-32.0) mmol/L BUN (7.0-18.0) mg/dL Creatinine (0.6-1.0) mg/dL Est Cr Clr Drug Dosing mL/min Estimated GFR (MDRD) ml/min Glucose (74-106) mg/dL Calcium (8.5-10.1) mg/dL Total Bilirubin (0.2-1.0) mg/dL AST (15-37) IU/L ALT (14-63) IU/L Alkaline Phosphatase (46-116) U/L Troponin I (0.000-0.056) ng/mL Total Protein (6.4-8.2) g/dL Albumin (3.4-5.0) g/dL Globulin (2.6-4.0) g/dL Albumin/Globulin Ratio (0.9-1.6) Triglycerides 128 (0-200) mg/dL Cholesterol 185 (50-200) mg/dL LDL Cholesterol, Calc 70 (60-180) mg/dL VLDL Cholesterol 25 (5-55) mg/dL HDL Cholesterol 89 H (40-60) mg/dL Cholesterol/HDL Ratio 2.1 L (3.3-6.0) TSH, Ultra Sensitive 1.57 (0.36-3.74) uIU/mL Influenza Type A RNA NEGATIVE (NEGATIVE) Influenza Type B RNA NEGATIVE (NEGATIVE) SARS-CoV-2 RNA (RIOS) NEGATIVE (NEGATIVE) Med Orders - Current: Current Medications Discontinued Medications Acetaminophen (Acetaminophen 325 Mg Tab) 650 mg PO Q4H PRN PRN Reason: Pain (Mild 1-3)/fever Aspirin (Aspirin 81 Mg Tab.Chew) 324 mg PO ONETIME ONE Stop: 08/01/21 20:21 Last Admin: 08/01/21 20:40 Dose: 324 mg Documented by: Alum Buskirk/Mag Buskirk/Simeth XS (15 ml/ Lidocaine HCl 5 ml) 0 ml PO ONETIME ONE Stop: 08/01/21 20:05 Last Admin: 08/01/21 20:11 Dose: 15 each Documented by: Diphenhydramine HCl (Diphenhydramine 50 Mg/Ml Sdv) 50 mg IVPUSH ONETIME ONE Stop: 08/01/21 20:01 Last Admin: 08/01/21 20:10 Dose: 50 mg Documented by: Enoxaparin Sodium (Enoxaparin 40 Mg/0.4 Ml Syringe) 40 mg SUBCUT Q24H [facility] Last Admin: 08/02/21 01:06 Dose: Not Given Documented by: Enoxaparin Sodium (Enoxaparin 40 Mg/0.4 Ml Syringe) 40 mg SUBCUT BEDTIME [facility] Last Admin: 08/02/21 00:24 Dose: 40 mg Documented by: Gadobenate Dimeglumine (Gadobenate Dimeglumine 529 Mg/Ml 20 Ml Sdv) 20 ml IVPUSH ONETIME STA Stop: 08/02/21 07:42 Last Admin: 08/02/21 07:49 Dose: 14 ml Documented by: Iopamidol (Iopamidol 755 Mg/Ml 500 Ml Multipack Bottle) 100 ml IVPUSH ONETIME ONE Stop: 08/01/21 19:37 Last Admin: 08/01/21 19:49 Dose: 100 ml Documented by: Ondansetron HCl (Ondansetron 4 Mg Tab.Dis) 4 mg PO Q6H PRN PRN Reason: nausea, able to take PO Pantoprazole Sodium (Pantoprazole 40 Mg Tab.Cr) 40 mg PO BID [facility] Last Admin: 08/02/21 01:06 Dose: Not Given Documented by: Pantoprazole Sodium (Pantoprazole 40 Mg Tab.Cr) 40 mg PO BID [facility] Last Admin: 08/02/21 08:56 Dose: 40 mg Documented by: Liothyronine 5 Mcg (Tablet) 1 each PO BID [facility] Last Admin: 08/02/21 08:57 Dose: Not Given Documented by: Sertraline HCl (Sertraline 50 Mg Tab) 50 mg PO BEDTIME [facility] Last Admin: 08/02/21 00:25 Dose: 50 mg Documented by: Sodium Chloride (Sodium Chloride 0.9% 10 Ml Syringe) 10 ml FLUSH ASDIRECTED PRN PRN Reason: Keep Vein Open Last Admin: 08/01/21 20:11 Dose: 10 ml Documented by: Sodium Chloride (Sodium Chloride 0.9% 2.5 Ml Syringe) 2.5 ml FLUSH ASDIRECTED PRN PRN Reason: Keep Vein Open Last Admin: 08/01/21 20:11 Dose: 2.5 ml Documented by: Sodium Chloride (Sodium Chloride 0.9% 20 Ml Sdv) 10 ml IV ASDIRECTED PRN PRN Reason: IV Use Sumatriptan Succinate (Sumatriptan 50 Mg Tab) 100 mg PO ONETIME PRN PRN Reason: MIGRAINE HEADACHE Trazodone HCl (Trazodone Hcl 100 Mg Tab) 100 mg PO BEDTIME [facility] Last Admin: 08/02/21 01:06 Dose: Not Given Documented by: Trazodone HCl (Trazodone 50 Mg Tab) 100 mg PO BEDTIME [facility] Last Admin: 08/02/21 00:25 Dose: 100 mg Documented by: <Benja Quintanilla - Last Filed: 08/02/21 21:39> Discharge Summary - Referral to Home Health Primary Care Physician: Aric Guillermo MD - Patient Summary/Data Consults: Consultations 08/01/21 21:19 OT Evaluation and Treatment [CONS] Routine PT Evaluation and Treatment [CONS] Routine LEASE ADMINISTRATOR Evaluation and Treatment [CONS] Routine - Discharge Summary/Plan Comment Discharge Summary/Plan Comment: ATTENDING STATEMENT: Benja Younger MD was present personally supervising care, and examined patient and other data. - Patient Data Vitals - Most Recent: Last Vital Signs Temp 96.4 F L 08/02/21 11:38 Pulse 59 L 08/02/21 11:38 Resp 22 H 08/02/21 11:38 BP 105/54 L 08/02/21 11:38 Pulse Ox 98 08/02/21 11:38 I&O - Last 24 hours: Intake & Output 08/02/21 08/02/21 08/02/21 06:59 14:59 22:59 Intake Total 450 Output Total 0 Balance 450 Lab Results - Last 24 hrs: Laboratory Results - last 24 hr 08/02/21 Range/Units 10:06 Triglycerides 128 (0-200) mg/dL Cholesterol 185 (50-200) mg/dL LDL Cholesterol, Calc 70 (60-180) mg/dL VLDL Cholesterol 25 (5-55) mg/dL HDL Cholesterol 89 H (40-60) mg/dL Cholesterol/HDL Ratio 2.1 L (3.3-6.0) Med Orders - Current: Current Medications Discontinued Medications Acetaminophen (Acetaminophen 325 Mg Tab) 650 mg PO Q4H PRN PRN Reason: Pain (Mild 1-3)/fever Aspirin (Aspirin 81 Mg Tab.Chew) 324 mg PO ONETIME ONE Stop: 08/01/21 20:21 Last Admin: 08/01/21 20:40 Dose: 324 mg Documented by: Alum Buskirk/Mag Buskirk/Simeth XS (15 ml/ Lidocaine HCl 5 ml) 0 ml PO ONETIME ONE Stop: 08/01/21 20:05 Last Admin: 08/01/21 20:11 Dose: 15 each Documented by: Diphenhydramine HCl (Diphenhydramine 50 Mg/Ml Sdv) 50 mg IVPUSH ONETIME ONE Stop: 08/01/21 20:01 Last Admin: 08/01/21 20:10 Dose: 50 mg Documented by: Enoxaparin Sodium (Enoxaparin 40 Mg/0.4 Ml Syringe) 40 mg SUBCUT Q24H [facility] Last Admin: 08/02/21 01:06 Dose: Not Given Documented by: Enoxaparin Sodium (Enoxaparin 40 Mg/0.4 Ml Syringe) 40 mg SUBCUT BEDTIME [facility] Last Admin: 08/02/21 00:24 Dose: 40 mg Documented by: Gadobenate Dimeglumine (Gadobenate Dimeglumine 529 Mg/Ml 20 Ml Sdv) 20 ml IVPUSH ONETIME STA Stop: 08/02/21 07:42 Last Admin: 08/02/21 07:49 Dose: 14 ml Documented by: Iopamidol (Iopamidol 755 Mg/Ml 500 Ml Multipack Bottle) 100 ml IVPUSH ONETIME ONE Stop: 08/01/21 19:37 Last Admin: 08/01/21 19:49 Dose: 100 ml Documented by: Ondansetron HCl (Ondansetron 4 Mg Tab.Dis) 4 mg PO Q6H PRN PRN Reason: nausea, able to take PO Pantoprazole Sodium (Pantoprazole 40 Mg Tab.Cr) 40 mg PO BID [facility] Last Admin: 08/02/21 01:06 Dose: Not Given Documented by: Pantoprazole Sodium (Pantoprazole 40 Mg Tab.Cr) 40 mg PO BID [facility] Last Admin: 08/02/21 08:56 Dose: 40 mg Documented by: Liothyronine 5 Mcg (Tablet) 1 each PO BID [facility] Last Admin: 08/02/21 08:57 Dose: Not Given Documented by: Sertraline HCl (Sertraline 50 Mg Tab) 50 mg PO BEDTIME [facility] Last Admin: 08/02/21 00:25 Dose: 50 mg Documented by: Sodium Chloride (Sodium Chloride 0.9% 10 Ml Syringe) 10 ml FLUSH ASDIRECTED PRN PRN Reason: Keep Vein Open Last Admin: 08/01/21 20:11 Dose: 10 ml Documented by: Sodium Chloride (Sodium Chloride 0.9% 2.5 Ml Syringe) 2.5 ml FLUSH ASDIRECTED PRN PRN Reason: Keep Vein Open Last Admin: 08/01/21 20:11 Dose: 2.5 ml Documented by: Sodium Chloride (Sodium Chloride 0.9% 20 Ml Sdv) 10 ml IV ASDIRECTED PRN PRN Reason: IV Use Sumatriptan Succinate (Sumatriptan 50 Mg Tab) 100 mg PO ONETIME PRN PRN Reason: MIGRAINE HEADACHE Trazodone HCl (Trazodone Hcl 100 Mg Tab) 100 mg PO BEDTIME [facility] Last Admin: 08/02/21 01:06 Dose: Not Given Documented by: Trazodone HCl (Trazodone 50 Mg Tab) 100 mg PO BEDTIME [facility] Last Admin: 08/02/21 00:25 Dose: 100 mg Documented by:
== END 2021-08-02 13:45 | disposition home or self-care (01) ==
LOC: MW.ED 19:13 → MW.MS 21:10
PROVIDERS: ADMIT Hospitalist; ATTEND Hospitalist
DX: R20.0 Anesthesia of skin (principal); R53.1 Weakness; E03.9 Hypothyroidism, unspecified; M79.7 Fibromyalgia; K20.0 Eosinophilic esophagitis; G43.909 Migraine, unspecified, not intractable, without status migrainosus; Z88.0 Allergy status to penicillin; Z88.8 Allergy status to other drugs, medicaments and biological substances; Z79.899 Other long term (current) drug therapy; Z79.890 Hormone replacement therapy; Z79.82 Long term (current) use of aspirin; Z20.822 Contact with and (suspected) exposure to COVID-19
CPT/HCPCS: 0240U; 36415; 70450; 70496; 70498; 70553; 71045; 80053; 80061; 84443; 84484; 85025; 85610; 85730; 93005; 93306; 96374; 97161; 97165; 99285; A9270; A9577; J1200; J1650; Q9967; 96372; G0378

== ENCOUNTER 2023-08-14 18:49 | Emergency (ER) | payer BC ==
[2023-08-14 20:03] LABS: APPEARANCE,URINE CLEAR; BILIRUBIN,URINE NEGATIVE (NEGATIVE); COLOR,URINE YELLOW; GLUCOSE,URINE NEGATIVE (NEGATIVE); KETONES,URINE NEGATIVE (NEGATIVE); LEUKOCYTE ESTERASE,URINE NEGATIVE (NEGATIVE); NITRITE,URINE NEGATIVE (NEGATIVE); OCCULT BLOOD,URINE NEGATIVE (NEGATIVE); PH,URINE 8.5 (5.0-8.0); PROTEIN,URINE TRACE mg/dL (NEGATIVE)
[2023-08-14 20:11] LABS: BACTERIA,URINE FEW (NEGATIVE); EPITHELIAL CELLS,URINE FEW (NONE-FEW); MUCUS,URINE LIGHT (NONE-MOD); RBC,URINE 0-2 (0-2/HPF)
[2023-08-14 20:31] LABS: BASOPHILS ABSOLUTE AUTO 0.05 K/uL (0.00-0.20); BASOPHILS PERCENT AUTO 0.5 % (0.0-1.0); EOSINOPHILS ABSOLUTE AUTO 0.26 K/uL (0.00-0.45); EOSINOPHILS PERCENT AUTO 2.8 % (0.0-6.0); HEMATOCRIT 40.3 % (37.0-47.0); HEMOGLOBIN 14.3 g/dL (12.0-16.0); IMMATURE GRAN ABSOLUTE AUTO 0.03 K/uL (0.00-0.05); IMMATURE GRAN PERCENT AUTO 0.3 % (0.0-0.4); LYMPHOCYTES PERCENT AUTO 31.8 % (24.0-44.0); MEAN CORPUSCULAR HEMOGLOBIN 31.7 pg (28.0-32.0); MEAN CORPUSCULAR HGB CONC 35.5 g/dL (32.0-36.0); MEAN CORPUSCULAR VOLUME 89.4 fL (83.0-99.0); MEAN PLATELET VOLUME 9.1 fL (9.4-12.3); MONOCYTES ABSOLUTE AUTO 0.45 K/uL (0.00-0.80); MONOCYTES PERCENT AUTO 4.9 % (0.0-8.0); NEUTROPHILS ABSOLUTE AUTO 5.44 K/uL (1.80-7.70); NEUTROPHILS PERCENT AUTO 59.7 % (41.0-71.0); PLATELET COUNT,PLT 456 K/uL (150-400); RED BLOOD CELL COUNT 4.51 M/uL (4.10-5.30); WHITE BLOOD CELL COUNT,WBC 9.13 K/uL (3.9-11.3)
[2023-08-14 20:51] LABS: A/G RATIO 1.3 (0.9-1.6); ALBUMIN 4.1 g/dL (3.4-5.0); BILIRUBIN TOTAL 0.4 mg/dL (0.2-1.0); CALCIUM 9.2 mg/dL (8.5-10.1); CARBON DIOXIDE,CO2 25.9 mmol/L (21.0-32.0); EST CRCL DRUG DOSING (CG) 45.71 mL/min; POTASSIUM,K 3.5 mmol/L (3.5-5.1); PROTEIN TOTAL,TP 7.3 g/dL (6.4-8.2)
[2023-08-14] MEDS ORDERED: Sodium Chloride 0.9% 1,000 ML IV ONE (21:09)
[2023-08-14] MEDS ORDERED: HYDROmorphone 1 MG/ML Syringe IVPUSH ONE (21:09)
[2023-08-14] MEDS ORDERED: Ondansetron 4 MG/2 ML SDV IVPUSH ONE (21:09)
[2023-08-14] MEDS ORDERED: Sodium Chloride 0.9% 2.5 ML Syringe FLUSH PRN (21:10)
[2023-08-14] MEDS ORDERED: Sodium Chloride 0.9% 10 ML Syringe FLUSH PRN (21:10)
[2023-08-15] MEDS ORDERED: HYDROmorphone 1 MG/ML Syringe IVPUSH ONE (00:02)
[2023-08-15 00:20] VITALS: BP 122/61; PULSE 63
== END 2023-08-15 00:19 | disposition home or self-care (01) ==
LOC: MW.ED 18:49
DX: R10.9 Unspecified abdominal pain (principal); I10 Essential (primary) hypertension; E11.9 Type 2 diabetes mellitus without complications; E05.90 Thyrotoxicosis, unspecified without thyrotoxic crisis or storm; E66.9 Obesity, unspecified; Z68.32 Body mass index [BMI] 32.0-32.9, adult; Z79.82 Long term (current) use of aspirin; Z88.6 Allergy status to analgesic agent; Z79.899 Other long term (current) drug therapy
CPT/HCPCS: 36415; 74176; 80053; 81001; 83690; 85025; 96361; 96374; 96375; 96376; 99284; J1170; J2405; J3490; J7030

== ENCOUNTER 2024-03-10 17:23 | Emergency (ER) | payer BC ==
[2024-03-10 19:24] VITALS: BP 141/75; PULSE 56
== END 2024-03-10 19:24 | disposition home or self-care (01) ==
LOC: MW.ED 17:23
DX: S89.91XA Unspecified injury of right lower leg, initial encounter (principal); Z90.49 Acquired absence of other specified parts of digestive tract; I10 Essential (primary) hypertension; E05.90 Thyrotoxicosis, unspecified without thyrotoxic crisis or storm; E66.9 Obesity, unspecified; Z68.30 Body mass index [BMI] 30.0-30.9, adult; Z86.16 Personal history of COVID-19; Z90.710 Acquired absence of both cervix and uterus; Z79.899 Other long term (current) drug therapy; Z79.891 Long term (current) use of opiate analgesic; Z88.8 Allergy status to other drugs, medicaments and biological substances; Z88.0 Allergy status to penicillin; Z75.8 Other problems related to medical facilities and other health care; X58.XXXA Exposure to other specified factors, initial encounter
CPT/HCPCS: 73590-26-RT; 73590-RT; 99283

== ENCOUNTER 2024-06-01 08:44 | Emergency (ER) | payer BC ==
[2024-06-01] MEDS: Adenosine 6 MG/2 ML SDV IVPUSH ONE (09:10)
[2024-06-01] MEDS ORDERED: Sodium Chloride 0.9% 10 ML Syringe FLUSH PRN (09:16)
[2024-06-01] MEDS ORDERED: Sodium Chloride 0.9% 2.5 ML Syringe FLUSH PRN (09:16)
[2024-06-01 09:35] LABS: BASOPHILS ABSOLUTE AUTO 0.06 K/uL (0.00-0.20); BASOPHILS PERCENT AUTO 0.8 % (0.0-1.0); EOSINOPHILS ABSOLUTE AUTO 0.21 K/uL (0.00-0.45); HEMOGLOBIN 12.3 g/dL (12.0-16.0); IMMATURE GRAN ABSOLUTE AUTO 0.03 K/uL (0.00-0.05); IMMATURE GRAN PERCENT AUTO 0.4 % (0.0-0.4); LYMPHOCYTES ABSOLUTE AUTO 1.47 K/uL (1.00-4.80); LYMPHOCYTES PERCENT AUTO 20.7 % (24.0-44.0); MEAN CORPUSCULAR HEMOGLOBIN 31.2 pg (28.0-32.0); MEAN CORPUSCULAR HGB CONC 33.2 g/dL (32.0-36.0); MEAN CORPUSCULAR VOLUME 93.9 fL (83.0-99.0); MONOCYTES ABSOLUTE AUTO 0.46 K/uL (0.00-0.80); MONOCYTES PERCENT AUTO 6.5 % (0.0-8.0); NEUTROPHILS ABSOLUTE AUTO 4.86 K/uL (1.80-7.70); NEUTROPHILS PERCENT AUTO 68.6 % (41.0-71.0); PLATELET COUNT,PLT 362 K/uL (150-400); RED BLOOD CELL COUNT 3.94 M/uL (4.10-5.30); WHITE BLOOD CELL COUNT,WBC 7.09 K/uL (3.9-11.3)
[2024-06-01 10:09] LABS: AMPHETAMINES SCREEN, URINE NEGATIVE (CUTOFF=500); BARBITURATE SCREEN,URINE NEGATIVE (CUTOFF=200); BENZODIAZEPINES SCREEN,URINE PRESUMPTIVE POSITIVE (CUTOFF=150); BUPRENORPHINE SCREEN,URINE NEGATIVE (CUTOFF=10); METHADONE SCREEN, URINE NEGATIVE (CUTOFF=200); METHAMPHETAMINES SCREEN, URINE NEGATIVE (CUTOFF=500); OXYCODONE SCREEN,URINE NEGATIVE (CUT0FF=100); PCP SCREEN,URINE NEGATIVE (CUTOFF=25); THC SCREEN,URINE 20 NG/ML NEGATIVE (CUTOFF=50)
[2024-06-01 10:20] LABS: ALBUMIN 3.1 g/dL (3.4-5.0); BILIRUBIN TOTAL 0.4 mg/dL (0.2-1.0); CALCIUM 8.8 mg/dL (8.5-10.1); CARBON DIOXIDE,CO2 25.2 mmol/L (21.0-32.0); CREATININE 1.1 mg/dL (0.6-1.0); EST CRCL DRUG DOSING (CG) 41.04 mL/min; POTASSIUM,K 5.1 mmol/L (3.5-5.1); PROTEIN TOTAL,TP 6.3 g/dL (6.4-8.2); TSH ULTRASENSITIVE 3.58 uIU/mL (0.36-3.74)
[2024-06-01] MEDS: Iopamidol 755 MG/ML 500 ML Multipack Bottle IVPUSH STA (11:06)
[2024-06-01 11:37] VITALS: BP 118/77; PULSE 81
== END 2024-06-01 11:49 | disposition home or self-care (01) ==
LOC: MW.ED 08:44
DX: I47.10 Supraventricular tachycardia, unspecified (principal); I10 Essential (primary) hypertension; E03.9 Hypothyroidism, unspecified; E66.9 Obesity, unspecified; Z90.49 Acquired absence of other specified parts of digestive tract; Z90.710 Acquired absence of both cervix and uterus; Z79.899 Other long term (current) drug therapy; Z88.0 Allergy status to penicillin; Z88.6 Allergy status to analgesic agent
CPT/HCPCS: 36415; 71275; 80053; 80305; 84443; 84484; 85025; 93005; 96374; 99285; J0153; Q9967; 93010; 99284

== ENCOUNTER 2025-07-19 12:34 | Emergency (ER) | payer BC ==
[2025-07-19] MEDS ORDERED: Sodium Chloride 0.9% 2.5 ML Syringe FLUSH PRN (13:14)
[2025-07-19] MEDS ORDERED: Sodium Chloride 0.9% 10 ML Syringe FLUSH PRN (13:14)
[2025-07-19 14:16] LABS: BASOPHILS ABSOLUTE AUTO 0.02 K/uL (0.00-0.20); BASOPHILS PERCENT AUTO 0.3 % (0.0-1.0); EOSINOPHILS ABSOLUTE AUTO 0.11 K/uL (0.00-0.45); EOSINOPHILS PERCENT AUTO 1.7 % (0.0-6.0); IMMATURE GRAN ABSOLUTE AUTO 0.02 K/uL (0.00-0.05); IMMATURE GRAN PERCENT AUTO 0.3 % (0.0-0.4); LYMPHOCYTES ABSOLUTE AUTO 1.62 K/uL (1.00-4.80); LYMPHOCYTES PERCENT AUTO 24.4 % (24.0-44.0); MEAN PLATELET VOLUME 9.2 fL (9.4-12.3); MONOCYTES ABSOLUTE AUTO 0.37 K/uL (0.00-0.80); MONOCYTES PERCENT AUTO 5.6 % (0.0-8.0); NEUTROPHILS ABSOLUTE AUTO 4.49 K/uL (1.80-7.70); NEUTROPHILS PERCENT AUTO 67.7 % (41.0-71.0); NRBC ABSOLUTE 0.00 K/uL (0.00-0.02); NRBC PERCENT 0.0 /100WBC (0.0-0.2); PLATELET COUNT,PLT 312 K/uL (150-400); RED BLOOD CELL COUNT 4.02 M/uL (4.10-5.30); WHITE BLOOD CELL COUNT,WBC 6.63 K/uL (3.9-11.3)
[2025-07-19 14:37] LABS: BLOOD UREA NITROGEN,BUN 17.0 mg/dL (7.0-18.0); CARBON DIOXIDE,CO2 26.4 mmol/L (21.0-32.0); CHLORIDE,CL 107.0 mmol/L (98-107); CREATININE 0.8 mg/dL (0.6-1.0); EST CRCL DRUG DOSING (CG) 55.73 mL/min; GLUCOSE RANDOM 85.0 mg/dL (74-106); POTASSIUM,K 4.0 mmol/L (3.5-5.1); SODIUM,NA 144.0 mmol/L (136-145)
[2025-07-19 14:48] LABS: ESTIMATED GFR 84.0 mL/min (>60)
[2025-07-19 14:51] LABS: PRO B-TYPE NATRIUR PEPT,BNPPRO 155.0 pg/mL (0-125); TSH ULTRASENSITIVE 0.57 uIU/mL (0.36-3.74)
[2025-07-19 17:06] VITALS: BP 105/74; PULSE 93
== END 2025-07-19 17:05 | disposition home or self-care (01) ==
LOC: MW.ED 12:34
DX: R00.2 Palpitations (principal); I10 Essential (primary) hypertension; E66.9 Obesity, unspecified; Z90.710 Acquired absence of both cervix and uterus; Z79.899 Other long term (current) drug therapy; Z88.0 Allergy status to penicillin; Z88.6 Allergy status to analgesic agent; Z68.30 Body mass index [BMI] 30.0-30.9, adult
CPT/HCPCS: 36415; 71045; 71045-26; 80048; 83735; 83880; 84443; 84484; 85025; 85379; 93005; 99283; 99285